=== PATIENT | female | born 1975 | race Caucasian/White ===

== ENCOUNTER 2020-04-30 10:56 | Outpatient (REF) | payer OTHER, SELFPAY ==
--- NOTE | 2020-04-30 11:02 | MM_ITS ---
EXAMINATION: MM SCREENING DIGITAL BREAST TOMOSYNTHESIS, BILATERAL CLINICAL INFORMATION: Screening. Asymptomatic. The lifetime risk of breast cancer based on the Tyrer-Cuzick Model is 12%. COMPARISON: Mammography: 06/07/2018, 10/06/2016, 07/16/2015 TECHNIQUE: Digital breast tomosynthesis is performed in both the craniocaudal and mediolateral oblique views along with computer-aided detection (CAD). Synthesized 2D images are generated from the tomosynthesis. FINDINGS: There are scattered areas of fibroglandular density (ACR BI-RADS breast composition Category b). Breast tissue composition borders on heterogeneously dense. There are no significant masses, abnormal calcifications, or other abnormalities. No significant changes from prior studies. MM/MM tomosynthesis screening BI IMPRESSION: No mammographic evidence of malignancy. ASSESSMENT: BI-RADS 1: Negative RECOMMENDATION: Routine annual mammography screening. This patient's information was entered into a reminder system with a target due date for their next mammogram.
== END 2020-04-30 10:57 | disposition home or self-care (01) ==
LOC: HO.MAMMO 10:56
PROVIDERS: Visit Provider Nurse Practitioner Family
DX: Z12.31 Encounter for screening mammogram for malignant neoplasm of breast (principal)
CPT/HCPCS: 77063; 77067

== ENCOUNTER 2020-08-06 07:36 | Outpatient (REF) | payer OTHER, SELFPAY ==
[2020-08-06 07:53] LABS: COVID-19 Test Negative (Negative); IDNOW Serial# 55D5AD1C
== END 2020-08-06 07:37 | disposition home or self-care (01) ==
LOC: HO.EMPCOV 07:36
PROVIDERS: Visit Provider Internal Medicine
DX: Z20.822 Contact with and (suspected) exposure to COVID-19 (principal)
CPT/HCPCS: 36415; 87635; C9803

== ENCOUNTER 2020-12-01 08:21 | Outpatient (REF) | payer OTHER, SELFPAY ==
--- NOTE | ~2020-12-01 | XR_ITS ---
EXAMINATION: XR KNEE, RIGHT XR KNEE, LEFT XR ANKLE, RIGHT XR ANKLE, LEFT CLINICAL INFORMATION: Effusion. COMPARISON: None. TECHNIQUE: AP and lateral views of the right and left knee. AP, mortise, and lateral views of the right and left ankle. FINDINGS: Right Knee: Tiny medial and patellofemoral compartment marginal osteophytes. No osseous erosion. No fracture or dislocation. No joint effusion. No abnormal soft tissue calcification. Left Knee: No significant joint space narrowing or marginal osteophytes. No osseous erosion. No fracture or dislocation. No joint effusion. No abnormal soft tissue calcification. Right Ankle: No acute fracture or dislocation. The ankle mortise is maintained. No joint space narrowing or marginal osteophytes. No osseous erosion. No abnormal soft tissue calcification. Left Ankle: No acute fracture or dislocation. Ankle mortise is maintained. No joint space narrowing or marginal osteophytes. No osseous erosion. No abnormal soft tissue calcification. XR/XR knee RT 2V IMPRESSION: RIGHT KNEE: Minimal medial and patellofemoral compartment arthrosis. No joint effusion. LEFT KNEE: Unremarkable examination. RIGHT ANKLE: Unremarkable examination. LEFT ANKLE: Unremarkable examination.
--- NOTE | ~2020-12-01 | XR_ITS ---
EXAMINATION: XR KNEE, RIGHT XR KNEE, LEFT XR ANKLE, RIGHT XR ANKLE, LEFT CLINICAL INFORMATION: Effusion. COMPARISON: None. TECHNIQUE: AP and lateral views of the right and left knee. AP, mortise, and lateral views of the right and left ankle. FINDINGS: Right Knee: Tiny medial and patellofemoral compartment marginal osteophytes. No osseous erosion. No fracture or dislocation. No joint effusion. No abnormal soft tissue calcification. Left Knee: No significant joint space narrowing or marginal osteophytes. No osseous erosion. No fracture or dislocation. No joint effusion. No abnormal soft tissue calcification. Right Ankle: No acute fracture or dislocation. The ankle mortise is maintained. No joint space narrowing or marginal osteophytes. No osseous erosion. No abnormal soft tissue calcification. Left Ankle: No acute fracture or dislocation. Ankle mortise is maintained. No joint space narrowing or marginal osteophytes. No osseous erosion. No abnormal soft tissue calcification. XR/XR ankle RT min 3V IMPRESSION: RIGHT KNEE: Minimal medial and patellofemoral compartment arthrosis. No joint effusion. LEFT KNEE: Unremarkable examination. RIGHT ANKLE: Unremarkable examination. LEFT ANKLE: Unremarkable examination.
--- NOTE | ~2020-12-01 | XR_ITS ---
EXAMINATION: XR HAND, RIGHT XR HAND, LEFT CLINICAL INFORMATION: Effusion. COMPARISON: None. TECHNIQUE: AP, oblique, and lateral views of the right and left hand. FINDINGS: Right Hand: No fracture or dislocation. Normal carpal alignment. No significant joint space narrowing or marginal osteophytes. No osseous erosion. No periarticular osteopenia. No abnormal soft tissue calcification. Left Hand: No fracture or dislocation. Normal carpal alignment. No significant joint space narrowing or marginal osteophytes. No osseous erosion. No periarticular osteopenia. No abnormal soft tissue calcification. XR/XR hand LT min 3V IMPRESSION: RIGHT HAND: Unremarkable examination. LEFT HAND: Unremarkable examination.
--- NOTE | ~2020-12-01 | XR_ITS ---
EXAMINATION: XR HAND, RIGHT XR HAND, LEFT CLINICAL INFORMATION: Effusion. COMPARISON: None. TECHNIQUE: AP, oblique, and lateral views of the right and left hand. FINDINGS: Right Hand: No fracture or dislocation. Normal carpal alignment. No significant joint space narrowing or marginal osteophytes. No osseous erosion. No periarticular osteopenia. No abnormal soft tissue calcification. Left Hand: No fracture or dislocation. Normal carpal alignment. No significant joint space narrowing or marginal osteophytes. No osseous erosion. No periarticular osteopenia. No abnormal soft tissue calcification. XR/XR hand RT min 3V IMPRESSION: RIGHT HAND: Unremarkable examination. LEFT HAND: Unremarkable examination.
--- NOTE | ~2020-12-01 | XR_ITS ---
EXAMINATION: XR KNEE, RIGHT XR KNEE, LEFT XR ANKLE, RIGHT XR ANKLE, LEFT CLINICAL INFORMATION: Effusion. COMPARISON: None. TECHNIQUE: AP and lateral views of the right and left knee. AP, mortise, and lateral views of the right and left ankle. FINDINGS: Right Knee: Tiny medial and patellofemoral compartment marginal osteophytes. No osseous erosion. No fracture or dislocation. No joint effusion. No abnormal soft tissue calcification. Left Knee: No significant joint space narrowing or marginal osteophytes. No osseous erosion. No fracture or dislocation. No joint effusion. No abnormal soft tissue calcification. Right Ankle: No acute fracture or dislocation. The ankle mortise is maintained. No joint space narrowing or marginal osteophytes. No osseous erosion. No abnormal soft tissue calcification. Left Ankle: No acute fracture or dislocation. Ankle mortise is maintained. No joint space narrowing or marginal osteophytes. No osseous erosion. No abnormal soft tissue calcification. XR/XR knee LT 2V IMPRESSION: RIGHT KNEE: Minimal medial and patellofemoral compartment arthrosis. No joint effusion. LEFT KNEE: Unremarkable examination. RIGHT ANKLE: Unremarkable examination. LEFT ANKLE: Unremarkable examination.
--- NOTE | ~2020-12-01 | XR_ITS ---
EXAMINATION: XR KNEE, RIGHT XR KNEE, LEFT XR ANKLE, RIGHT XR ANKLE, LEFT CLINICAL INFORMATION: Effusion. COMPARISON: None. TECHNIQUE: AP and lateral views of the right and left knee. AP, mortise, and lateral views of the right and left ankle. FINDINGS: Right Knee: Tiny medial and patellofemoral compartment marginal osteophytes. No osseous erosion. No fracture or dislocation. No joint effusion. No abnormal soft tissue calcification. Left Knee: No significant joint space narrowing or marginal osteophytes. No osseous erosion. No fracture or dislocation. No joint effusion. No abnormal soft tissue calcification. Right Ankle: No acute fracture or dislocation. The ankle mortise is maintained. No joint space narrowing or marginal osteophytes. No osseous erosion. No abnormal soft tissue calcification. Left Ankle: No acute fracture or dislocation. Ankle mortise is maintained. No joint space narrowing or marginal osteophytes. No osseous erosion. No abnormal soft tissue calcification. XR/XR ankle LT min 3V IMPRESSION: RIGHT KNEE: Minimal medial and patellofemoral compartment arthrosis. No joint effusion. LEFT KNEE: Unremarkable examination. RIGHT ANKLE: Unremarkable examination. LEFT ANKLE: Unremarkable examination.
[2020-12-01 11:29] LABS: MANUAL DIFF FLAG NO
[2020-12-01 11:34] LABS: Glucose Urine UA NEG (NEG); Leukocyte Esterase Urine NEG (NEG); Nitrite Urine NEG (NEG); Specific Gravity - Urine <= 1.005 (1.005-1.025); UACC Culture Trigger NO; Urine Blood TRACE (NEG); Urine Ketones NEG (NEG); Urine Protein NEG (NEG-TRACE)
[2020-12-01 11:37] LABS: Appearance Urine HAZY; Color Urine YELLOW
[2020-12-01 11:38] LABS: Basophils Percent Auto 0.2 % (0-2); Eosinophils Absolute Auto 0.1 X10*3/uL (0.0-0.4); Eosinophils Percent Auto 1.3 % (0-4); Hematocrit 37.2 % (37-47); Hemoglobin 12.5 g/dl (12.0-16.0); Imm Gran Abs Auto 0.01 X10*3/uL (0.00-0.03); Imm Gran Pct Auto 0.2 % (0.0-0.4); Lymphocytes Absolute Auto 1.5 X10*3/uL (1.2-4.9); Lymphocytes Percent Auto 32.5 % (20-40); Mean Corpuscular HGB Conc 33.6 g/dl (31.0-35.0); Mean Corpuscular Hemoglobin 30.3 pg (27.0-33.0); Mean Corpuscular Volume 90.3 fL (80-98); Mean Platelet Volume 10.8 fL (9.4-12.3); Monocytes Absolute Auto 0.3 X10*3/uL (0.1-1.2); Monocytes Percent Auto 6.5 % (2-11); Neutrophils Absolute Auto 2.6 X10*3/uL (2.0-8.3); Neutrophils Percent Auto 59.3 % (45-73); Platelet Count 200 X10*3/uL (160-400); Red Blood Count 4.12 X10*6/uL (4.20-5.50); White Blood Count 4.5 X10*3/uL (4.8-10.8)
[2020-12-01 11:44] LABS: RBC Urine 0-2 /HPF (0); Squamous Epithelial Cell Urine TRACE /LPF; WBC Urine 0 /HPF (0-4)
[2020-12-01 12:00] LABS: Alanine Aminotransferase 24 U/L (0-31); Albumin Level 4.1 g/dL (3.5-5.0); Alkaline Phosphatase 50 U/L (39-117); Anion Gap 12 (12-20); Aspartate Amino Transferase 19 U/L (5-31); Bilirubin Total 0.6 mg/dL (0.0-1.0); Blood Urea Nitrogen 11 mg/dL (9-16); C Reactive Protein 0.22 mg/dL (< or = 0.50); Calcium 9.3 mg/dL (8.4-10.2); Carbon Dioxide 25 mmol/L (22-29); Chloride 105 mmol/L (96-108); Cholesterol 215 mg/dL; Estimated Glomerular Filt Rate > 60; Glucose Fasting 93 mg/dL (60-99); HDL Cholesterol 49 mg/dL; Iron 86 mcg/dL (30-160); LDL Cholesterol Calculated 151 mg/dl; Potassium 4.1 mmol/L (3.3-5.1); Sodium 138 mmol/L (135-145); Total Protein 6.3 g/dL (6.5-8.0); Triglycerides 79 mg/dL
[2020-12-01 12:12] LABS: Percent Iron Saturation 27 % (15-50); Rheumatoid Factor < 15.0 IU/mL (<15.0); Total Iron Binding Capacity 321 mcg/dL (228-428); Unsaturated Iron Binding 235 ug/dL
[2020-12-01 12:25] LABS: Ferritin 106 ng/mL (10-250); TSH reflex Free T4 1.71 uIU/mL (0.32-4.0); Vitamin D 25-OH Total 22.9 ng/mL (>30)
[2020-12-01 13:28] LABS: Erythrocyte Sedimentation Rate 10 MM/HR (0-20)
[2020-12-02 08:35] LABS: Lyme Abs Screen <0.90 index
[2020-12-02 11:32] LABS: Immunoglobulin A 100 mg/dL (47-310)
[2020-12-02 11:36] LABS: Antibody to SS-A Antigen <1.0 NEG AI (<1.0 NEG); Antibody to SS-B Antigen <1.0 NEG AI (<1.0 NEG)
[2020-12-02 16:12] LABS: Transglutaminase Ab IgG 1 U/mL; Transglutaminase IgA 1 U/mL
[2020-12-02 22:27] LABS: Anti Nuclear Antibody Screen POSITIVE (NEGATIVE)
[2020-12-03 14:31] LABS: Cyclic Citrullinated Peptide <16 UNITS
[2020-12-05 09:51] LABS: Endomysial IgA Antibody Negative (Negative)
== END 2020-12-01 08:22 | disposition home or self-care (01) ==
LOC: HO.HMGCX 08:21
PROVIDERS: PCP Nurse Practitioner Family; Visit Provider Nurse Practitioner Family
DX: Z00.00 Encounter for general adult medical examination without abnormal findings (principal); M25.40 Effusion, unspecified joint
CPT/HCPCS: 36415; 73130; 73560; 73610; 80053; 80061; 81001; 82306; 82728; 82784; 83516; 83540; 84443; 85025; 85652; 86038; 86039; 86140; 86200; 86235; 86255; 86256; 86431; 86617; 86618

== ENCOUNTER 2020-12-02 07:53 | Outpatient (REF) | payer OTHER, SELFPAY ==
[2020-12-04 14:16] LABS: PTT (LAC) Screen 28 sec (< OR = 40)
== END 2020-12-02 07:54 | disposition home or self-care (01) ==
LOC: HO.LAB 07:53
PROVIDERS: PCP Nurse Practitioner Family; Visit Provider Nurse Practitioner Family
DX: M25.40 Effusion, unspecified joint (principal)
CPT/HCPCS: 36415; 85597; 85613; 85730

== ENCOUNTER 2022-05-25 09:58 | Outpatient (REF) | payer OTHER, SELFPAY ==
--- NOTE | ~2022-05-25 | MM_ITS ---
EXAMINATION: MM SCREENING DIGITAL BREAST TOMOSYNTHESIS, BILATERAL CLINICAL INFORMATION: Screening. Asymptomatic. The lifetime risk of breast cancer based on the Tyrer-Cuzick Model is 11.6%. COMPARISON: Mammography: April 30, 2020 and studies dating back to July 16, 2015 TECHNIQUE: Digital breast tomosynthesis is performed in both the craniocaudal and mediolateral oblique views along with computer-aided detection (CAD). Synthesized 2D images are generated from the tomosynthesis. FINDINGS: The breasts are heterogeneously dense, which may obscure small masses (ACR BI-RADS breast composition Category c). There are no significant masses, abnormal calcifications, or other abnormalities. MM/MM tomosynthesis screening BI IMPRESSION: No significant changes from prior exam. ASSESSMENT: BI-RADS 1: Negative RECOMMENDATION: Routine annual mammography screening. This patient's information was entered into a reminder system with a target due date for their next mammogram.
== END 2022-05-25 09:59 | disposition home or self-care (01) ==
LOC: HO.MAMMO 09:58
PROVIDERS: PCP Nurse Practitioner Family; Visit Provider Nurse Practitioner Family
DX: Z12.31 Encounter for screening mammogram for malignant neoplasm of breast (principal)
CPT/HCPCS: 77063; 77067

== ENCOUNTER → 2022-08-10 14:27 | Outpatient (BNVA) | payer OTHER, SELFPAY | PROVIDERS: PCP Nurse Practitioner Family; Referring Provider Nurse Practitioner Family; Visit Provider Surgery | DX: Z13.89 Encounter for screening for other disorder (principal) ==

== ENCOUNTER 2022-08-23 09:35 | Outpatient (REF) | payer OTHER, SELFPAY ==
[2022-08-23 11:39] LABS: Hemoglobin 13.9 g/dl (12.0-16.0); Mean Corpuscular HGB Conc 33.9 g/dl (31.0-35.0); Mean Corpuscular Hemoglobin 30.8 pg (27.0-33.0); Mean Corpuscular Volume 90.7 fL (80.0-98.0); Mean Platelet Volume 10.5 fL (9.4-12.3); Platelet Count 206 X10*3/uL (160-400); Red Blood Count 4.52 X10*6/uL (4.20-5.50); Red Cell Distribution Width 11.9 % (11.0-16.0); White Blood Count 3.6 X10*3/uL (4.8-10.8)
[2022-08-23 13:02] LABS: Alanine Aminotransferase 16 U/L (0-31); Albumin Level 4.4 g/dL (3.5-5.0); Alkaline Phosphatase 59 U/L (39-117); Anion Gap 10 (12-20); Aspartate Amino Transferase 15 U/L (5-31); Bilirubin Direct 0.2 mg/dL (0.0-0.5); Bilirubin Total 0.6 mg/dL (0.0-1.0); Blood Urea Nitrogen 9 mg/dL (9-16); Calcium 9.7 mg/dL (8.4-10.2); Carbon Dioxide 28 mmol/L (22-29); Chloride 108 mmol/L (96-108); Estimated Glomerular Filt Rate > 60; Glucose Random 93 mg/dL (60-115); Potassium 4.7 mmol/L (3.3-5.1); Sodium 141 mmol/L (135-145); Total Protein 6.7 g/dL (6.5-8.0)
[2022-08-23 13:04] LABS: TSH reflex Free T4 1.13 uIU/mL (0.32-4.0); Vitamin D 25-OH Total 23.2 ng/mL (>30)
== END 2022-08-23 09:36 | disposition home or self-care (01) ==
LOC: HO.HMGCLDS 09:35
PROVIDERS: Surgery; PCP Nurse Practitioner Family; Visit Provider Nurse Practitioner Family
DX: R10.11 Right upper quadrant pain (principal); R53.83 Other fatigue; E55.9 Vitamin D deficiency, unspecified
CPT/HCPCS: 36415; 80048; 80076; 82306; 84443; 85027

== ENCOUNTER 2022-08-31 07:53 | Outpatient (REF) | payer OTHER, SELFPAY ==
--- NOTE | ~2022-08-31 | US_ITS ---
EXAMINATION: US ABDOMEN LIMITED CLINICAL INFORMATION: Right upper quadrant pain. COMPARISON: Ultrasound abdomen complete 05/25/2017. TECHNIQUE: Real-time imaging of the right upper quadrant abdominal viscera. FINDINGS: PANCREAS: Normal. LIVER: Normal. The liver is normal in size. The liver contour is normal. Parenchymal echogenicity is normal. No focal hepatic lesion. There is no intrahepatic biliary duct dilatation seen. GALLBLADDER: Normal. The gallbladder is physiologically distended without evidence of stones, sludge, polyps, wall thickening or pericholecystic fluid. COMMON BILE DUCT: Normal in caliber measuring 0.3 cm in diameter. RIGHT KIDNEY: Normal. No hydronephrosis. No renal calculi or focal parenchymal lesions. The kidney measures 11.0 cm in maximum dimension. FREE FLUID: None. US/US abdomen limited IMPRESSION: Unremarkable examination.
== END 2022-08-31 07:54 | disposition home or self-care (01) ==
LOC: HO.US 07:53
PROVIDERS: PCP Nurse Practitioner Family; Visit Provider Surgery
DX: R10.11 Right upper quadrant pain (principal)
CPT/HCPCS: 76705

== ENCOUNTER 2022-09-03 13:44 | Outpatient (REF) | payer OTHER, SELFPAY ==
[2022-09-03 13:51] LABS: Appearance Urine Clear; Color Urine Yellow; Glucose Urine UA Negative (Negative); Leukocyte Esterase Urine Negative (Negative); Nitrite Urine Negative (Negative); Urine Blood Negative (Negative); Urine Ketones Negative (Negative); Urine Protein Negative (Neg-Trace)
== END 2022-09-03 13:45 | disposition home or self-care (01) ==
LOC: HO.LNP 13:44
PROVIDERS: Visit Provider Nurse Practitioner Family
DX: R53.83 Other fatigue (principal)
CPT/HCPCS: 81003

== ENCOUNTER 2022-12-29 10:36 | Outpatient (AMB) | payer OTHER, SELFPAY ==
--- NOTE | 2022-12-29 10:27 | MHC.PC.OV ---
Vital Signs 12/29/22 10:52 Height 5 ft 6 in Weight 194 lb BMI 31.3 BP 130/80 Blood Pressure Location Lt brachial Position Sitting Pulse 70 Pulse Source Pulse Oximeter Pulse Oximetry (%) 98 Oxygen Delivery Method Room Air Intake Visit Reasons: Physical exam Allergies Sulfa (Sulfonamide Antibiotics) [SULFA (SULFONAMIDE ANTIBIOTICS)] Allergy (Unknown, Verified 12/29/22 10:53) HIVES Medication List - Last Reconciled 12/29/22 by MIGUEL Patel cephalexin 500 mg PO BID 10 days cholecalciferol (vitamin D3) 100 mcg PO DAILY levothyroxine 25 mcg PO DAILY phentermine 15 mg PO DAILY 30 days triamcinolone acetonide 0.1% 1 appl topical BID 10 days Tobacco use date assessed: 12/29/22 Dental Screening Dental Screen Date: 12/29/22 Did you have a dental visit in the last 12 months?: No Did you have a dental problem in the last 6 months where you did not have access to dental care?: No Was dental information given to patient?: Patient has dentist HPI Physical exam HPI Details Pt is here for a PE. Will order labs. Mammo is up to date. 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 Refuses colonoscopy at this time, will order cologuard. ? enlarged thyroid. Will order US. upcoming rheum appt for intermittent painful and swollen joints [facility] Medical History (Updated 12/29/22 @ 11:39 by MIGUEL Patel) Hypothyroidism Right upper quadrant abdominal pain of unknown etiology Chronic leukopenia Family History Father Vascular disease Hypertension Thyroid disease Mother Thyroid disease Paternal Grandmother Heart disease Diabetes CVD (cardiovascular disease) Maternal Grandfather Osteoarthritis Maternal Aunt Lupus Social History Housing: House Patient Tobacco Use Status: Never used Tobacco Current occupational status: employed Current occupation: [employer] [place] Questionnaire PHQ-9 Over the last 2 weeks, how often have you been bothered by any of the following problems? 1. Little interest or pleasure in doing things: not at all 2. Feeling down, depressed, or hopeless: not at all 3. Trouble falling or staying asleep, or sleeping too much: not at all 4. Feeling tired or having little energy: not at all 5. Poor appetite or overeating: not at all 6. Feeling bad about yourself - or that you are a failure or have let yourself or your family down: not at all 7. Trouble concentrating on things, such as reading the newspaper or watching television: not at all 8. Moving or speaking so slowly that other people could have noticed. Or the opposite - being so fidgety or restless that you have been moving around a lot more than usual: not at all 9. Thoughts that you would be better off or of hurting yourself in some way: not at all Total score: 0 Depression Screening Interpretation: Negative 28828 - PHQ-9 Billing: Yes Source: Developed by Drs. Gustavo Hawk, Evangelina Mclaughlin, David Jose and colleagues, with an educational иван from [employer]. Thrive Questionnaire Date Thrive assessed: 12/29/22 I am a: Patient What is your living situation today?: I have a steady place to live Within the past 12 months, did the food you bought not last and you didn't have the money to get more?: Never true Within the past 12 months, did you worry whether your food would run out before you got money to buy more?: Never true Do you have trouble paying for medicines?: No Do you have trouble getting transportation to medical appointments?: No Do you have trouble paying your heating and electricity bill?: No Do you have trouble taking care of your child, family member or friend?: No Do you have trouble with day-to-day activities such as bathing, preparing meals, shopping, managing finances, etc.?: No Are you currently unemployed and looking for a job?: No Are you interested in more education?: No Please select the resources that you would like help with: None AUDIT C Alcohol Use Questionnaire (AUDIT-C) 1. How often do you have a drink containing alcohol?: Monthly or less 2. How many drinks containing alcohol do you have on a typical day when you are drinking?: 1 or 2 3. How often do you have six or more drinks on one occasion?: Never Total Score: 1 Score Reviewed/Action Taken: Yes DONNA-7 AMB Questionnaire DONNA-7 Date DONNA - 7 assessed: 12/29/22 Feeling nervous, anxious, or on edge: 0 = Not at all Not being able to stop or control worryin = Not at all Worrying too much about different things: 0 = Not at all Trouble relaxin = Not at all Being so restless that it is hard to sit still: 0 = Not at all Becoming easily annoyed or irritable: 0 = Not at all Feeling afraid as if something awful might happen: 0 = Not at all Total DONNA-7 score (0-4 normal; 5-9 mild; 10-14 moderate; 15-21 severe): 0 Source: Developed by Drs. Gustavo Hawk, Evangelina Mclaughlin, David Jose and colleagues, with an educational иван from [employer]. DONNA-7 Assessment Billing DONNA-7 Assessment Tool: DONNA-7 Assessment 24152 Review of Systems Const Denies chills and Denies fever(s) Eyes Denies blurry vision ENT Denies vertigo, Denies dizziness and Denies sore throat Card Denies chest pain at rest, Denies chest pain with activity, Denies diaphoresis, Denies dyspnea and Denies dyspnea on exertion Resp Denies cough, Denies dyspnea, Denies dyspnea on exertion and Denies wheezing GI Denies abdominal pain, Denies melena, Denies hematochezia, Denies constipation, Denies diarrhea and Denies loose stools Denies hematuria Musc Denies numbness and Denies tingling Skin/Breast Denies lesions Neuro Denies vertigo, Denies dizziness, Denies numbness and Denies tingling Psych Denies anxiety, Denies depression, Denies homicidal ideation, Denies suicidal ideation and Denies other (substance abuse) Aller/Immun Denies wheezing Physical exam (Primary Care) Vital Signs: Last Vital Signs Pulse 70 12/29/22 10:52 BP 130/80 12/29/22 10:52 Pulse Ox 98 12/29/22 10:52 Oxygen Delivery Method Room Air 12/29/22 10:52 BMI result Body Mass Index 31.3 Tobacco/Smoking Status: Tobacco use Status Tobacco use date assessed 12/29/22 12/29/22 10:57 Patient Tobacco Use Status Never used Tobacco 12/29/22 10:29 PHQ-9: PHQ-9 Score PHQ-9: Total score 0 12/29/22 11:28 Depression Screening Interpretation: Negative Thrive Assessment: Date of Thrive Assessment Date Thrive assessed 12/29/22 12/29/22 10:32 Const General: cooperative Nutritional Appearance: well nourished Orientation/consciousness: patient oriented x3 HENMT Head: Yes normal to inspection, Yes normocephalic and Yes atraumatic Ears: TM's normal bilaterally Eyes General: appearance normal, both eyes and all related structures Alignment and Position: alignment normal and position normal Neck Other: ? enlarged thyroid Neck: Yes normal visual inspection and Yes no lymphadenopathy Resp Effort & Inspection: normal respiratory effort Auscultation: clear to auscultation bilaterally Cardio Rate: regular rate Rhythm: regular rhythm Heart sounds: S1 normal heart sound present, S2 normal heart sound present and no murmurs GI Palpation (GI): Soft to palpation and nontender Auscultation: normal bowel sounds Skin Rashes: no rashes Neuro General: patient oriented x3, moves all extremities, no focal motor deficits and deep tendon reflexes 2+ bilaterally Romberg Test: Negative Psych Appearance: grossly normal Mental Status: mental status grossly normal Speech and movement: Normal speech and movement present Affect: normal affect Attitude: cooperative Thought process: Normal thought process present Thought content: Normal thought content present Insight: Good insight present (Psych) Judgement: Good judgement present (Psych) Assessment and Plan Assessment & Plan (1) Physical exam: Code(s): Z00.00 - Encounter for general adult medical examination without abnormal findings Plan: Labs ordered (2) Vitamin D deficiency: Code(s): E55.9 - Vitamin D deficiency, unspecified (3) Enlarged thyroid: Code(s): E04.9 - Nontoxic goiter, unspecified Plan The patient agreed to the use of a emergency medicine medical director for this encounter. Scribed for MIGUEL Brown by Geneva Barney emergency medicine medical director, on 12/29/2022 at 11:20 EST. Orders: Orders UA CC w/rflx Micro + Cult Today Z00.00 - Encounter for general adult medical examination without abnormal findings Lipid Panel Today Z00.00 - Encounter for general adult medical examination without abnormal findings Tick-borne Disease Molecular Today M25.40 - Effusion, unspecified joint Complete Blood Count Auto Diff Today Z00.00 - Encounter for general adult medical examination without abnormal findings Comprehensive [place]. Panel Fast Today Z00.00 - Encounter for general adult medical examination without abnormal findings TSH reflex Free T4 Today Z00.00 - Encounter for general adult medical examination without abnormal findings Vitamin D 25-OH Total Today E55.9 - Vitamin D deficiency, unspecified US thyroid Today E04.9 - Nontoxic goiter, unspecified Referrals Cologuard Test Z12.11 - Encounter for screening for malignant neoplasm of colon, Z12.12 - Encounter for screening for malignant neoplasm of rectum Coding Level of Care Code Est Pt Prev Care 40-64y(27539) Diagnoses Physical exam Z00.00 Vitamin D deficiency E55.9 Enlarged thyroid E04.9 Additional Codes DONNA-7 Assessment Billing - DONNA-7 Assessment Tool: DONNA-7 Assessment [id number] ([id number])
[2022-12-29 10:52] VITALS: BP 130/80; PULSE 70; O2SAT 98; BMI 31.3
== END 2022-12-29 12:42 | disposition home or self-care (01) ==
PROVIDERS: Visit Provider Nurse Practitioner Family
DX: Z00.00 Encounter for general adult medical examination without abnormal findings (principal); E55.9 Vitamin D deficiency, unspecified; E04.9 Nontoxic goiter, unspecified
CPT/HCPCS: 99396

== ENCOUNTER 2023-01-13 07:15 | Outpatient (REF) | payer OTHER, SELFPAY ==
[2023-01-13 11:09] LABS: MANUAL DIFF FLAG NO
[2023-01-13 11:21] LABS: Basophils Percent Auto 0.3 % (0-2); Eosinophils Absolute Auto 0.1 X10*3/uL (0.0-0.4); Eosinophils Percent Auto 1.8 % (0-4); Hematocrit 41.2 % (37.0-47.0); Hemoglobin 13.9 g/dl (12.0-16.0); Imm Gran Abs Auto 0.01 X10*3/uL (0.00-0.03); Imm Gran Pct Auto 0.3 % (0.0-0.4); Lymphocytes Absolute Auto 1.8 X10*3/uL (1.2-4.9); Lymphocytes Percent Auto 46.2 % (20-40); Mean Corpuscular HGB Conc 33.7 g/dl (31.0-35.0); Mean Platelet Volume 10.9 fL (9.4-12.3); Monocytes Absolute Auto 0.2 X10*3/uL (0.1-1.2); Neutrophils Absolute Auto 1.7 x10*3/uL (2.0-8.3); Neutrophils Percent Auto 45.4 % (45-73); Platelet Count 209 X10*3/uL (160-400); Red Blood Count 4.48 X10*6/uL (4.20-5.50); Red Cell Distribution Width 11.5 % (11.0-16.0); White Blood Count 3.8 X10*3/uL (4.8-10.8)
[2023-01-13 11:41] LABS: Appearance Urine Clear; Color Urine Yellow; Glucose Urine UA Negative (Negative); Leukocyte Esterase Urine Trace (Negative); Nitrite Urine Negative (Negative); PH 7.5 (5.0-9.0); UMIC TRIGGER UACC YES; Urine Blood Negative (Negative); Urine Ketones Negative (Negative); Urine Protein Negative (Neg-Trace)
[2023-01-13 11:51] LABS: Bacteria Urine None Seen (None Seen); Hyaline Casts Urine 0-2 /LPF (0-2); RBC Urine 0-2 /HPF (0-2); Squamous Epithelial Cell Urine 0-2 /HPF (0-2); WBC Urine 0-5 /HPF (0-5)
[2023-01-13 12:03] LABS: Alanine Aminotransferase 23 U/L (0-31); Albumin Level 4.5 g/dL (3.5-5.0); Alkaline Phosphatase 60 U/L (39-117); Anion Gap 15 (12-20); Aspartate Amino Transferase 21 U/L (5-31); Bilirubin Total 0.5 mg/dL (0.0-1.0); Blood Urea Nitrogen 12 mg/dL (9-16); Carbon Dioxide 24 mmol/L (22-29); Chloride 105 mmol/L (96-108); Cholesterol 251 mg/dL (<200); Estimated Glomerular Filt Rate > 60; Glucose Fasting 93 mg/dL (60-99); HDL Cholesterol 56 mg/dL (>40); LDL Cholesterol Calculated 178 mg/dL (<100); Potassium 4.1 mmol/L (3.3-5.1); Sodium 140 mmol/L (135-145); Triglycerides 85 mg/dL (<150)
[2023-01-13 12:08] LABS: TSH reflex Free T4 2.16 uIU/mL (0.32-4.0)
[2023-01-16 21:43] LABS: A. Phagocytphilium DNA,RT-PCR NOT DETECTED (NOT DETECTED); Babesia Microti DNA, RT-PCR NOT DETECTED (NOT DETECTED); Borrelia Miyamotoi,DNA RT-PCR NOT DETECTED (NOT DETECTED); E.Chaffeensis DNA RT-PCR NOT DETECTED (NOT DETECTED); Lyme(Borrelia ssp)DNA RT-PCR NOT DETECTED (NOT DETECTED)
== END 2023-01-13 07:16 | disposition home or self-care (01) ==
LOC: HO.HMGCLDS 07:15
PROVIDERS: PCP Nurse Practitioner Family; Visit Provider Nurse Practitioner Family
DX: Z00.00 Encounter for general adult medical examination without abnormal findings (principal); E55.9 Vitamin D deficiency, unspecified; M25.40 Effusion, unspecified joint
CPT/HCPCS: 36415; 80053; 80061; 81001; 82306; 84443; 85025; 87468; 87469; 87478; 87484; 87798

== ENCOUNTER 2023-01-17 15:51 | Outpatient (REF) | payer OTHER, SELFPAY ==
--- NOTE | ~2023-01-17 | US_ITS ---
EXAMINATION: US THYROID CLINICAL INFORMATION: Nontoxic goiter, unspecified. COMPARISON: None available. TECHNIQUE: Linear transducer tanner-scale and color Doppler examination with attention to the region of the thyroid. FINDINGS: SIZE: Measurements of the thyroid lobes and nodules are given in sagittal, anteroposterior and transverse dimensions respectively. Right Thyroid Lobe: 5.3 x 1.6 x 1.7 cm, volume 7.6 mL. Parenchyma: The gland echotexture is homogeneous. Thyroid vascularity is normal. Left Thyroid Lobe: 4.6 x 1.3 x 1.8 cm, volume 5.6 mL. Parenchyma: The gland echotexture is homogeneous. Thyroid vascularity is normal. Isthmus: 0.2 cm in maximum AP dimension. Estimated total number of nodules greater than or equal to 1 cm: 0. [employer] nodules are described as follows: 1. Location: Inferior to right thyroid lobe. Size: 0.5 x 0.4 x 0.5 cm, volume 0.05 mL. Nodule characteristics: Composition: Solid (2). Echogenicity: Very hypoechoic (3). Shape: Not taller than wide (0). Margins: Smooth (0). Echogenic Foci: None (0). ACR TI-RADS total points: 5 ACR TI-RADS category: 5 NODES: No lymphadenopathy is seen in the tissue surrounding the thyroid gland. US/US thyroid IMPRESSION: 0.5 cm nodule at the inferior aspect of the right thyroid lobe. Per below, continued sonographic follow-up recommended. ACR TI-RADS RECOMMENDATION REFERENCE: Ultrasound-guided fine-needle aspiration, followup ultrasound, no further follow up. * TR1 (0 point) and TR2 (2 points): No FNA or follow up. * TR3 (3 points): FNA if more than or equal to 2.5 cm in maximum dimension, followup ultrasound in 1, 3 and 5 years if 1.5 to 2.4 cm in maximum dimension. * TR4 (4-6 points): FNA if more than or equal to 1.5 cm in maximum dimension, followup ultrasound in 1, 2, 3 and 5 years if 1 to 1.4 cm in maximum dimension. * TR5 (more than or equal to 7 points): FNA if more than or equal to 1 cm in maximum dimension, followup ultrasound every year for 5 years if 0.5 to 0.9 cm in maximum dimension. Continued sonographic follow-up recommended. * TR3, TR4 or TR5 nodules that are below the size threshold for followup receive no follow up.
== END 2023-01-17 15:52 | disposition home or self-care (01) ==
LOC: HO.US 15:51
PROVIDERS: PCP Nurse Practitioner Family; Visit Provider Nurse Practitioner Family
DX: E04.9 Nontoxic goiter, unspecified (principal)
CPT/HCPCS: 76536

== ENCOUNTER 2023-03-10 12:10 | Outpatient (AMB) | payer OTHER, SELFPAY ==
--- NOTE | 2023-03-10 12:13 | MHC.OFFWIV ---
Intake Vital Signs 03/10/23 12:15 Height 5 ft 6 in Weight 196 lb BMI 31.6 BP 122/74 Blood Pressure Location Lt brachial Position Sitting Pulse 71 Pulse Source Pulse Oximeter Temp 98.0 F Temp Source Temporal Artery Scan Pulse Oximetry (%) 97 Oxygen Delivery Method Room Air Intake Visit Reasons: EP Cough, Congestion, Headache 1 week (masked) Intake Note: pt is here for c/o cough, congestion with congestion, headache 1x week Patient Tobacco Use Status: Never used Tobacco Allergies Sulfa (Sulfonamide Antibiotics) [SULFA (SULFONAMIDE ANTIBIOTICS)] Allergy (Unknown, Verified 03/10/23 12:15) HIVES Medication List - Last Reconciled 03/10/23 by Alberta Montes PA-C amoxicillin-pot clavulanate 875-125 mg 1 tab PO BID 10 days cetirizine (Zyrtec) 10 mg PO DAILY PRN cholecalciferol (vitamin D3) 100 mcg PO DAILY levothyroxine 25 mcg PO DAILY Do you need a note to return to daycare/school/sports/work: Yes HPI HPI Comments History of Present Illness Details Patient is a 47yo F who presents to the office with cough/congestion x [address]; dry throat Progressed into head + pressure/blocked sinuses + mucus that she is able to express that is thick She said now she has wet cough that has progressed Minimal SOB with exertion, without chest pain Denies fevers She has tried daily Zyrtec (states hx chronic sinus infections) and Mucinex She said blocked ears and popping PFSH Medical History (Updated 03/10/23 @ 12:30 by Alberta Montes PA-C) Hypothyroidism Right upper quadrant abdominal pain of unknown etiology Chronic leukopenia Family History Father Vascular disease Hypertension Thyroid disease Mother Thyroid disease Paternal Grandmother Heart disease Diabetes CVD (cardiovascular disease) Maternal Grandfather Osteoarthritis Maternal Aunt Lupus Housing: House Patient Tobacco Use Status: Never used Tobacco Current occupational status: employed Current occupation: [employer] [place] Review of Systems Const Reports body aches, Denies chills, Denies fever(s), Reports headache(s) and Reports malaise Eyes Denies diplopia, Denies eye discharge and Denies itchy eyes ENT Denies ear discharge, Reports headache(s), Reports sinus pain, Reports sinus pressure and Denies sore throat Card Denies chest pain and Denies dyspnea Resp Reports chest congestion, Reports cough and Denies dyspnea Neuro Reports headache(s) Aller/Immun Denies itchy eyes Physical Exam Vital Signs: Last Vital Signs Temp 98.0 F 03/10/23 12:15 Pulse 71 03/10/23 12:15 BP 118/74 03/10/23 12:15 Pulse Ox 97 03/10/23 12:15 Oxygen Delivery Method Room Air 03/10/23 12:15 BMI result Body Mass Index 31.6 General: Non-toxic, NAD. Speaking full sentences. Skin: Warm dry throughout Eye: EOMI HENT: Airway patent. Uvula midline. No pharyngeal erythema or edema. 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 Bilateral canals clear. TM + fluid without erythema o bulging/perforation, No hemotympanum noted. + tenderness to palpation of ethmoid and maxillary sinuses. No tenderness to frontal. Respiratory: CTA bilaterally. No wheezes, rales or rhonchi. + dry cough on exam Cardiac: RRR. No murmur MSK: Full ROM extremities. Neurology: A/O. No aphasia or facial droop. Gait without abnormality Psych: Good mood and affect Assessment & Plan Assessment & Plan (1) Sinusitis: Code(s): J32.9 - Chronic sinusitis, unspecified Qualifiers: Sinusitis location: maxillary Chronicity: acute Recurrence: not specified as recurrent Qualified Code(s): J01.00 - Acute maxillary sinusitis, unspecified Plan Seen nd evalated. Non-toxic and lung CTA Symptoms x 1 week and unresolved with OTC decongestant and antihistamine. Antibiotic with food Continue decongestants prn follow up with PCP ED if CP, SOB, uncontrolled fevers All questions answered at time of discharge Medications: New amoxicillin-pot clavulanate 875-125 mg 1 tab PO BID 10 days 20 tabs 0RF J32.9 - Chronic sinusitis, unspecified Coding Level of Care Code Est Pt Level 3 (00376) Diagnoses Acute maxillary sinusitis, recurrence not specified J01.00 Sinusitis location: maxillary Chronicity: acute Recurrence: not specified as recurrent
[2023-03-10 12:15] VITALS: BP 122/74; PULSE 71; TEMP 36.7; O2SAT 97; BMI 31.6
== END 2023-03-10 12:44 | disposition home or self-care (01) ==
PROVIDERS: PCP Nurse Practitioner Family; Visit Provider Physician Assistant
DX: J01.00 Acute maxillary sinusitis, unspecified (principal)
CPT/HCPCS: 99213

== ENCOUNTER 2023-07-21 13:35 | Outpatient (AMB) | payer OTHER, SELFPAY ==
--- NOTE | 2023-07-21 13:35 | MHC.OFFVIS ---
Intake Vital Signs 07/21/23 13:37 Height 5 ft 6 in Weight 212 lb 1.355 oz BMI 34.2 BP 110/76 Blood Pressure Location Rt brachial Position Sitting Pulse 97 Pulse Source Pulse Oximeter Pulse Oximetry (%) 68 L Oxygen Delivery Method Room Air Intake Visit Reasons: joint pain Intake Note: New patient, internally referred, presents to office today for joint pain. Joints affected: diffused myalgias, mainly right knee, feet, left shoulder, elsa hips Pain began approx: 1.5 years ago Has tried: Meloxicam, Ibuprofen, Tylenol Saw ATC in 2014 for her feet. Meloxicam was prescribed. 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 Lawrence, 47-year-old female, here for evaluation of multiple joint pain on referral from her primary care provider. The patient describes pain all over her joints, more prominent in her right knee, left shoulder, both hips and feet. She describes this has been ongoing for about a year and a half. [facility] and was provided with meloxicam. She does say that meloxicam helped the joint pain but on the advice of her PCP she had stopped it. She describes the pain to the right knee is more noticeable when she goes up and down the stairs and at times is significantly swollen. She has a feeling that her body is total pain. She also feels that there is decreased strength in her upper extremities. The bilateral hip pain makes it challenging to sleep at night and she has to consistently turn from [id number], but ends up sleeping on her back. By way of medical history she has hypothyroid subclinical, on 25 mcg of Synthroid. She has not has uveitis, rashes, sun sensitivity, Raynaud's, gout, Achilles tendonitis. By way of family history she has an aunt that has lupus and rheumatoid arthritis [facility] Medical History (Updated 07/21/23 @ 15:52 by MIGUEL Pendleton) Osteoarthritis of knees, bilateral Greater trochanteric bursitis of both hips Swelling of right knee joint Pain in joint involving multiple sites Hypothyroidism Right upper quadrant abdominal pain of unknown etiology Chronic leukopenia Family History Father Vascular disease Hypertension Thyroid disease Mother Thyroid disease Paternal Grandmother Heart disease Diabetes CVD (cardiovascular disease) Maternal Grandfather Osteoarthritis Maternal Aunt Lupus Social History (Updated 07/21/23 @ 13:43 by CORRINE Roblero) Housing: House Unable to assess alcohol history related to: Unable to respond Alcohol intake: current Alcohol intake frequency: holidays/special occasions only Patient Tobacco Use Status: Never used Tobacco Current occupational status: employed Current occupation: [employer] [place] Female Reproductive History Menstrual Total pregnancies: 2 Review of Systems Const All systems reviewed & are unremarkable except as noted in HPI and below Physical Exam Vital Signs: Last Vital Signs Pulse 97 07/21/23 13:37 BP 110/76 07/21/23 13:37 Pulse Ox 68 L 07/21/23 13:37 Oxygen Delivery Method Room Air 07/21/23 13:37 BMI result Body Mass Index 34.2 Vital signs reviewed. Constitutional: Non-toxic appearing. No acute distress. Well-developed and well-nourished. HEENT: Normocephalic and atraumatic. External auditory canals without erythema or edema bilaterally. Moist mucous membranes. No pharyngeal erythema or exudates. Skin: Warm and dry. No rashes or lesions noted. Neck: Full and painless range of motion. No cervical lymphadenopathy. Cardio: Regular rate and rhythm. No murmurs, gallops, or rubs. No lower extremity edema. No JVD. Pulmonary: No respiratory distress. No accessory muscle usage. Gastrointestinal: Soft, nontender, and nondistended Genitourinary: No CVA tenderness. Musculoskeletal: Normal range of motion in joints throughout the body. No deformity or other signs of injury. Trace swelling to right knee tenderness along parapatellar joint line Neuro: Alert and oriented x4. Cranial nerves 2-12 grossly intact. No focal deficits appreciated. Results Reviewed Results Reviewed: Imaging 2020 TECHNIQUE: AP and lateral views of the right and left knee. AP, mortise, and lateral views of the right and left ankle. FINDINGS: Right Knee: Tiny medial and patellofemoral compartment marginal osteophytes. No osseous erosion. No fracture or dislocation. No joint effusion. No abnormal soft tissue calcification. Left Knee: No significant joint space narrowing or marginal osteophytes. No osseous erosion. No fracture or dislocation. No joint effusion. No abnormal soft tissue calcification. Right Ankle: No acute fracture or dislocation. The ankle mortise is maintained. No joint space narrowing or marginal osteophytes. No osseous erosion. No abnormal soft tissue calcification. Left Ankle: No acute fracture or dislocation. Ankle mortise is maintained. No joint space narrowing or marginal osteophytes. No osseous erosion. No abnormal soft tissue calcification. XR/XR knee RT 2V IMPRESSION: RIGHT KNEE: Minimal medial and patellofemoral compartment arthrosis. No joint effusion. LEFT KNEE: Unremarkable examination. RIGHT ANKLE: Unremarkable examination. LEFT ANKLE: Unremarkable examination. TECHNIQUE: AP, oblique, and lateral views of the right and left hand. FINDINGS: Right Hand: No fracture or dislocation. Normal carpal alignment. No significant joint space narrowing or marginal osteophytes. No osseous erosion. No periarticular osteopenia. No abnormal soft tissue calcification. Left Hand: No fracture or dislocation. Normal carpal alignment. No significant joint space narrowing or marginal osteophytes. No osseous erosion. No periarticular osteopenia. No abnormal soft tissue calcification. XR/XR hand RT min 3V IMPRESSION: RIGHT HAND: Unremarkable examination. LEFT HAND: Unremarkable examination. Assessment & Plan Assessment & Plan (1) Greater trochanteric bursitis of both hips: Code(s): M70.61 - Trochanteric bursitis, right hip; M70.62 - Trochanteric bursitis, left hip (2) Swelling of right knee joint: Code(s): M25.461 - Effusion, right knee (3) Pain in joint involving multiple sites: Code(s): M25.50 - Pain in unspecified joint (4) Osteoarthritis of knees, bilateral: Code(s): M17.0 - Bilateral primary osteoarthritis of knee Qualifiers: Osteoarthritis type: primary Qualified Code(s): M17.0 - Bilateral primary osteoarthritis of knee Plan #Multiple joint pain/OA multiple joint: Ms. Lawrence has had some prior rheumatologic workup: Positive ASH at 1:80, negative CCP and negative rheumatoid factor, Sjogren's antibody negative. At this time she has ESR/CRP within normal range. At this time her clinical picture does have some elements of inflammation, more particularly in the right knee where there is swelling. However this could also be attributed to the osteoarthritis especially since felt when climbing stairs. She does recount that sometimes her hands are swelling that I suspect this is more fluid shifting than inflammatory swelling. I think the patient would benefit from PT to strengthen her quad and hip for both her knees and her bursitis respectively. I discussed with her that it is likely or onset of OA in her knee since it is experienced when climbing stairs. I will do a rheumatologic panel to evaluate further. She has had prior x-rays of her knees and ankles that were unremarkable. I discussed a prednisone trial with the patient but she wants elizabeth hold that at this time. She did say that whenever she uses prednisone for respiratory infection her joint pain improved tremendously. So we will keep this in mind. For now we will continue with the meloxicam 15 mg daily as this also helps her joint pain. I discussed with patient that we will monitor kidney function while on long-term NSAID use. She she can also take it every other day. It is also advisable that she takes it an hour before PT as that can help the after PT discomfort. We will follow-up in 3 months. Patient will call if she wants to do the prednisone trial. If there are any concerns for her labs I will call the patient prior to the appointment. Follow-up in 3 months I spent 45 minutes reviewing history, evaluating patient, discussing osteoarthritis disease process and treatment options and documenting Orders: Orders ASH Reflex Titer and Pattern Today M25.461 - Effusion, right knee, M25.50 - Pain in unspecified joint Anti DNA DS Antibody Today M25.461 - Effusion, right knee, M25.50 - Pain in unspecified joint Comprehensive Met. Panel Today M25.461 - Effusion, right knee, M25.50 - Pain in unspecified joint Erythrocyte Sedimentation Rate Today M25.461 - Effusion, right knee, M25.50 - Pain in unspecified joint Immunoglobulins,IgG IgA IgM Today M25.461 - Effusion, right knee, M25.50 - Pain in unspecified joint Creatine Kinase Total Today M25.461 - Effusion, right knee, M25.50 - Pain in unspecified joint Protein Electrophoresis, Serum Today M25.461 - Effusion, right knee, M25.50 - Pain in unspecified joint Uric Acid Today M25.461 - Effusion, right knee, M25.50 - Pain in unspecified joint Vitamin D 25-OH (D2 and D3) Today M25.461 - Effusion, right knee, M25.50 - Pain in unspecified joint Cyclic Citrullinated Peptide Today M25.461 - Effusion, right knee, M25.50 - Pain in unspecified joint PT Evaluation and Treatment Today M25.461 - Effusion, right knee, M70.61 - Trochanteric bursitis, right hip, M70.62 - Trochanteric bursitis, left hip Anti Extractable Nuclear Ag Today M25.461 - Effusion, right knee, M25.50 - Pain in unspecified joint Complete Blood Count Auto Diff Today M25.461 - Effusion, right knee, M25.50 - Pain in unspecified joint Immunofixation Pnl, Serum Today M25.461 - Effusion, right knee, M25.50 - Pain in unspecified joint Scleroderma 70 Antibody Today M25.461 - Effusion, right knee, M25.50 - Pain in unspecified joint T Spot TB Today M25.461 - Effusion, right knee, M25.50 - Pain in unspecified joint Hepatitis A,B,C Profile Today M25.461 - Effusion, right knee, M25.50 - Pain in unspecified joint Rheumatoid Factor Today M25.461 - Effusion, right knee, M25.50 - Pain in unspecified joint Medications: New meloxicam 15 mg PO DAILY 90 tabs 0RF M25.461 - Effusion, right knee, M25.50 - Pain in unspecified joint Coding Level of Care Code New Pt Level 4 (80248) Diagnoses Greater trochanteric bursitis of both hips M70.61; M70.62 Swelling of right knee joint M25.461 Pain in joint involving multiple sites M25.50 Primary osteoarthritis of both knees M17.0 Osteoarthritis type: primary
[2023-07-21 13:37] VITALS: BP 110/76; PULSE 97; O2SAT 68; BMI 34.2
== END 2023-07-21 14:27 | disposition home or self-care (01) ==
PROVIDERS: PCP Nurse Practitioner Family; Visit Provider Nurse Practitioner Family
DX: M70.61 Trochanteric bursitis, right hip (principal); M70.62 Trochanteric bursitis, left hip; M25.461 Effusion, right knee; M25.50 Pain in unspecified joint; M17.0 Bilateral primary osteoarthritis of knee
CPT/HCPCS: 99204

== ENCOUNTER → 2023-07-21 13:35 | Outpatient (BNVA) | payer OTHER, SELFPAY | PROVIDERS: PCP Nurse Practitioner Family; Visit Provider Nurse Practitioner Family ==

== ENCOUNTER 2023-07-26 14:30 | Outpatient (REF) | payer OTHER, SELFPAY ==
[2023-07-26 14:44] LABS: MANUAL DIFF FLAG NO
[2023-07-26 15:18] LABS: Basophils Percent Auto 0.2 % (0-2); Eosinophils Absolute Auto 0.1 X10*3/uL (0.0-0.4); Hematocrit 39.7 % (37.0-47.0); Hemoglobin 13.7 g/dl (12.0-16.0); Lymphocytes Absolute Auto 2.1 X10*3/uL (1.2-4.9); Lymphocytes Percent Auto 42.9 % (20-40); Mean Corpuscular HGB Conc 34.5 g/dl (31.0-35.0); Mean Corpuscular Hemoglobin 30.7 pg (27.0-33.0); Mean Platelet Volume 10.5 fL (9.4-12.3); Monocytes Absolute Auto 0.3 X10*3/uL (0.1-1.2); Monocytes Percent Auto 5.8 % (2-11); Neutrophils Absolute Auto 2.5 x10*3/uL (2.0-8.3); Neutrophils Percent Auto 49.1 % (45-73); Platelet Count 261 X10*3/uL (160-400); Red Blood Count 4.46 X10*6/uL (4.20-5.50); Red Cell Distribution Width 12.1 % (11.0-16.0)
[2023-07-26 16:02] LABS: Erythrocyte Sedimentation Rate 14 MM/HR (0-20)
[2023-07-26 17:25] LABS: Alanine Aminotransferase 21 U/L (0-31); Albumin Level 4.5 g/dL (3.5-5.0); Alkaline Phosphatase 82 U/L (39-117); Anion Gap 13 (12-20); Aspartate Amino Transferase 18 U/L (5-31); Bilirubin Total 0.3 mg/dL (0.0-1.0); Blood Urea Nitrogen 12 mg/dL (9-16); Calcium 9.4 mg/dL (8.4-10.2); Carbon Dioxide 26 mmol/L (22-29); Chloride 106 mmol/L (96-108); Estimated Glomerular Filt Rate > 60; Glucose Random 106 mg/dL (60-115); Potassium 3.9 mmol/L (3.3-5.1); Sodium 141 mmol/L (135-145); Total Protein 7.3 g/dL (6.5-8.0); Uric Acid 6.7 mg/dL (2.4-5.7)
[2023-07-26 18:44] LABS: Rheumatoid Factor < 13.0 IU/mL (<15.0)
[2023-07-27 05:14] LABS: HBS Num1 84.67 mIU/mL (0-7.99); HBc Num1 0.11 S/CO (0.00-0.79); HBsAGNum1 0.35 S/CO (0.00-0.99); Hepatitis A Antibody IgM 0.13 Index (0-0.79); Hepatitis B Core Antibody Nonreactive (Nonreactive); Hepatitis B Surface Antigen Negative (Negative); ~HepC Num1 0.12 S/CO (0.00-0.79); ~Hepatitis A Antibody IgM Nonreactive (Nonreactive); ~Hepatitis B Surface Antibody REACTIVE (Nonreactive); ~Hepatitis C Antibody Nonreactive (Nonreactive)
[2023-07-27 14:43] LABS: Cyclic Citrullinated Peptide <16 UNITS
[2023-07-27 20:43] LABS: Anti DNA DS Antibody <1 IU/mL; SM/Ribonucleoprotein Ab <1.0 NEG AI (<1.0 NEG); Scleroderma 70 Antibody <1.0 NEG AI (<1.0 NEG); Smith Protein <1.0 NEG AI (<1.0 NEG)
[2023-07-27 22:08] LABS: Prot Elec - Albumin 4.5 g/dL (3.8-4.8); Prot Elec - Alpha1 0.2 g/dL (0.2-0.3); Prot Elec - Alpha2 0.7 g/dL (0.5-0.9); Prot Elec - Beta 1 0.4 g/dL (0.4-0.6); Prot Elec - Beta 2 0.3 g/dL (0.2-0.5); Prot Elec - Gamma 0.8 g/dL (0.8-1.7); Prot Elec - Total Protein 6.9 g/dL (6.1-8.1)
[2023-07-28 11:34] LABS: IgA 108 mg/dL (47-310); IgG 856 mg/dL (600-1640); IgM 57 mg/dL (50-300)
[2023-07-28 22:28] LABS: TS Negative Control Passed; TS Panel A 0; TS Panel B 0; TS Positive Control Passed; TSpotTB Negative (Negative)
[2023-07-29 15:19] LABS: Vitamin D 25-OH, D2 <4 ng/mL; Vitamin D 25-OH, D3 24 ng/mL; Vitamin D 25-OH, Total 24 ng/mL (30-100)
[2023-07-30 10:54] LABS: Anti Nuclear Antibody Screen NEGATIVE (NEGATIVE)
== END 2023-07-26 14:31 | disposition home or self-care (01) ==
LOC: HO.LAB 14:30
PROVIDERS: PCP Nurse Practitioner Family; Visit Provider Nurse Practitioner Family
DX: Z11.1 Encounter for screening for respiratory tuberculosis (principal); M25.461 Effusion, right knee; M25.50 Pain in unspecified joint
CPT/HCPCS: 36415; 80053; 82306; 82550; 82784; 84165; 84550; 85025; 85652; 86038; 86200; 86225; 86235; 86334; 86431; 86481; 86704; 86706; 86709; 86803; 87340

== ENCOUNTER 2023-08-30 15:00 | Outpatient (RCR) | payer OTHER, SELFPAY ==
--- NOTE | 2023-08-11 14:55 | MHC.PT.EP ---
[facility] [place] Office [place] Office [place] Office [address] Amber Yanes [address] [phone] F: [phone] F: [phone] F: [phone] F: [phone] Physical Therapy Plan of Care Date of Evaluation: 08/11/23 Date of Surgery: N/A Diagnosis: trochanteric bursitis, bilateral (RL) Assessment: pt is a 47 y/o female presenting to physical therapy w/ referring diagnosis of trochanteric bursitis, bilateral. Impairments include pain, decreased range of motion, decreased strength, impaired functional mobility, impaired postural awareness, and altered ambulation mechanics. pt is a good candidate for skilled PT due to age, potential remediation of impairments, typical disease/condition progression and prognosis, comorbidities, and motivation. pt would benefit from skilled PT intervention to provide a tailored strengthening and stretching exercise program, functional training, gait training, postural re-training, neuromuscular re-education, modalities as needed for pain, equipment safety demonstration. Frequency and Duration: The patient will be seen 2x/wk for 4 wks Short Term Goals: pt will be I w/ HEP to promote self-management of condition. pt will demo proper sitting posture w/ lumbar roll to promote neutral spine w/ seated ADLs and work-related tasks. Materials Associate Goals: pt will report a statistically significant improvement in self-reported outcome measure, LEFI, to promote return to PLOF. pt ascend/descend stairs using reciprocal pattern and railing to promote ease in accessing primary living spaces and work spaces. Treatment Plan: Modalities to reduce pain, spasms and effusion. Manual therapy to restore motion and function. Therapeutic exercise to improve strength and flexibility. Neuromuscular re-education for posture and balance. Therapeutic activities to return to functional activities of daily living. Electronically signed by: Lauren Sosa PT, DPT Please sign and return to therapist. Thank you for your referral.
--- NOTE | 2023-09-13 16:09 | MHC.PT.DC ---
[facility] [place] Office [place] Office [place] Office [address] Amber Yanes [address] [phone] F: [phone] F: [phone] F: [phone] F: [phone] Physical Therapy Discharge Report Diagnosis: trochanteric bursitis, bilateral (RL) Date of Surgery: N/A Date of Evaluation: 08/11/23 Date of Discharge: 09/13/23 Treatments to Date: 2 Cancellations to Date: 5 No Shows to Date: 0 Discharge Status: Patient Elected to Stop Visit Non-compliance Discharge Summary: The patient by the time she had her PT evaluation was feeling better with change in medication. She was given some lower extremity strengthening exercises. She cancelled her last several appointments and has not followed up with anymore. The patient has not been seen in this office in two weeks. She is discharged at this time. Electronically signed by: Lauren Sosa PT, DPT Please sign and return to therapist. Thank you for your referral.
== END 2023-09-13 16:09 | disposition home or self-care (01) ==
LOC: HO.PT 15:00
PROVIDERS: PCP Nurse Practitioner Family; Visit Provider Nurse Practitioner Family
DX: M25.461 Effusion, right knee (principal); M70.61 Trochanteric bursitis, right hip; M70.62 Trochanteric bursitis, left hip
CPT/HCPCS: 97110; 97162

== ENCOUNTER 2023-10-24 12:37 | Outpatient (AMB) | payer OTHER, SELFPAY ==
--- NOTE | 2023-10-24 12:42 | MHC.OFFVIS ---
Vital Signs 10/24/23 12:51 Height 5 ft 6 in Weight 211 lb 13.828 oz BMI 34.2 BP 120/72 Blood Pressure Location Lt brachial Position Sitting Pulse 84 Pulse Source Pulse Oximeter Pulse Oximetry (%) 96 Oxygen Delivery Method Room Air Intake Visit Reasons: OA/Knee Pain/lm Intake Note: Patient presents for OA/knee pain. pain in every joint in my body Allergies Sulfa (Sulfonamide Antibiotics) [SULFA (SULFONAMIDE ANTIBIOTICS)] Allergy (Unknown, Verified 10/24/23 12:49) HIVES Medication List - Last Reconciled 10/24/23 by Elio Dodd MD acetaminophen (Tylenol) 325 mg PO QID PRN cetirizine (Zyrtec) 10 mg PO DAILY PRN cholecalciferol (vitamin D3) 100 mcg PO DAILY ibuprofen 400 mg PO BID PRN levothyroxine 25 mcg PO DAILY multivitamin 1 tab PO DAILY HPI Comments Details: Patient returns for a follow-up visit. She states that today is a good day. She has been taking ibuprofen 400 mg Twice daily. Meloxicam caused ankle swelling even when used every other day. She is recovering from a shingles infection, finish taking valacyclovir and feels that whenever she has an infection her joint pains improve. Previous history by Bere Gutierrez 07/2023: Ms. Lawrence, 47-year-old female, here for evaluation of multiple joint pain on referral from her primary care provider. The patient describes pain all over her joints, more prominent in her right knee, left shoulder, both hips and feet. She describes this has been ongoing for about a year and a half. [facility] and was provided with meloxicam. She does say that meloxicam helped the joint pain but on the advice of her PCP she had stopped it. She describes the pain to the right knee is more noticeable when she goes up and down the stairs and at times is significantly swollen. She has a feeling that her body is total pain. She also feels that there is decreased strength in her upper extremities. The bilateral hip pain makes it challenging to sleep at night and she has to consistently turn from [id number], but ends up sleeping on her back. By way of medical history she has hypothyroid subclinical, on 25 mcg of Synthroid. She has not has uveitis, rashes, sun sensitivity, Raynaud's, gout, Achilles tendonitis. By way of family history she has an aunt that has lupus and rheumatoid arthritis ON LICENSE OF [facility] Medical History Osteoarthritis of knees, bilateral Greater trochanteric bursitis of both hips Swelling of right knee joint Pain in joint involving multiple sites Hypothyroidism Right upper quadrant abdominal pain of unknown etiology Chronic leukopenia Family History Father Vascular disease Hypertension Thyroid disease Mother Thyroid disease Paternal Grandmother Heart disease Diabetes CVD (cardiovascular disease) Maternal Grandfather Osteoarthritis Maternal Aunt Lupus Social History Housing: House Unable to assess alcohol history related to: Unable to respond Alcohol intake: current Alcohol intake frequency: holidays/special occasions only Patient Tobacco Use Status: Never used Tobacco Current occupational status: employed Current occupation: [employer] [place] Female Reproductive History Menstrual Total pregnancies: 2 Full term: 2 Review of Systems [facility] [place] Reports arthralgias and Reports joint swelling Physical Exam Vital Signs: Last Vital Signs Pulse 84 10/24/23 12:51 BP 120/72 10/24/23 12:51 Pulse Ox 96 10/24/23 12:51 Oxygen Delivery Method Room Air 10/24/23 12:51 BMI result Body Mass Index 34.2 Const General: cooperative, healthy appearing and comfortable Nutritional Appearance: obese Orientation/consciousness: patient oriented x3 Limitations: no limitations HEENT Head: Yes normocephalic and Yes atraumatic Mouth: moist mucous membranes Resp Effort & Inspection: normal respiratory effort and able to speak in complete sentences Auscultation: clear to auscultation bilaterally Cardio Rate: regular rate Rhythm: regular rhythm Skin General skin exam: no rashes or lesions noted Neuro General: patient oriented x3 Extrem Other: No active synovitis Bilateral knee crepitus Normal nailfold capillaroscopy Few fibromyalgia tender points Assessment & Plan Assessment & Plan (1) Pain in joint involving multiple sites: Code(s): M25.50 - Pain in unspecified joint Category: Medical Plan: This is a 47-year-old female who presents for follow-up. Upon evaluation I do not see any signs suggestive of an autoimmune rheumatic disease. Clinical picture rather consistent with degenerative arthritis and fibromyalgia Discussed management of fibromyalgia with patient. Is a noninflammatory, non-autoimmune central afferent processing disorder leading to a diffuse pain syndrome. I suggested evaluation by a therapist and/or a psychiatrist to evaluate for any underlying anxiety/depression/PTSD. Try to follow sleep hygiene practices. Consider a referral for a sleep study by her PCP. Patient would benefit from increased physical activity, either through formal physical therapy or by joining a gym. Advised patient that she should start activity slowly and increase as tolerated. Consider low-impact exercises such as walking, swimming, aqua therapy stretching, yoga. Advised patient to return to clinic if she feels like she has a flare-up of her symptoms. To be re-evaluated for inflammatory arthritis (2) Positive ASH (antinuclear antibody): Code(s): R76.8 - Other specified abnormal immunological findings in serum Category: Medical Plan: Positive ASH in 2020, negative in 2023 with negative sub serologies and normal inflammatory markers. Significance of her positive ASH is unclear Plan I spent 30 minutes reviewing patient's chart, evaluating patient, counseling patient and documenting in the chart Coding Level of Care Code Est Pt Level 4 (00253) Diagnoses Pain in joint involving multiple sites M25.50 Positive ASH (antinuclear antibody) R76.8
[2023-10-24 12:51] VITALS: BP 120/72; PULSE 84; O2SAT 96; BMI 34.2
== END 2023-10-24 13:32 | disposition home or self-care (01) ==
PROVIDERS: PCP Nurse Practitioner Family; Visit Provider Student in an Organized Health Care Education/Training Program
DX: M25.50 Pain in unspecified joint (principal); R76.8 Other specified abnormal immunological findings in serum
CPT/HCPCS: 99214

== ENCOUNTER → 2023-10-24 12:37 | Outpatient (BNVA) | payer OTHER, SELFPAY | PROVIDERS: PCP Nurse Practitioner Family; Visit Provider Student in an Organized Health Care Education/Training Program ==

== ENCOUNTER 2023-10-27 13:47 | Outpatient (AMB) | payer OTHER, SELFPAY ==
--- NOTE | 2023-10-27 13:53 | MHC.PC.OV ---
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: No Is last menstrual period known: No (irregular) Allergies Sulfa (Sulfonamide Antibiotics) [SULFA (SULFONAMIDE ANTIBIOTICS)] Allergy (Unknown, Verified 10/27/23 13:53) HIVES Medication List - Last Reconciled 10/30/23 by Marguerite Hayes, BANQUET LINE COOK-BC acetaminophen (Tylenol) 325 mg PO QID PRN cetirizine (Zyrtec) 10 mg PO DAILY PRN cholecalciferol (vitamin D3) 100 mcg PO DAILY ibuprofen 400 mg PO BID PRN levothyroxine 25 mcg PO DAILY multivitamin 1 tab PO DAILY Tobacco use date assessed: 10/27/23 Dental Screening Dental Screen Date: 12/29/22 HPI HPI Comments History of Present Illness Details 47-year-old female with subclinical hypthyroid, chronic leukopenia, 0.5 cm nodule at the inferior aspect of the right thyroid lobe, hyperlipidemia Health Maintenance: ? Colon Cologuard 12/2022, next due 01/04/2026 ? Mammo 05/25/22, has repeat scheduled. ? DEXA ? PAP ? 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 Chart review done before today's visit. Labs from 07/26/2023 show a normal CBC, normal lytes, normal renal function, normal random glucose, elevated uric acid of 6.7, normal calcium, normal LFTs, normal total creatinine kinase, , vitamin-D 24, TSH 2.16 lipid profile from 01/13/2023 show normal triglycerides, elevated total cholesterol 251, LDL 178, HDL 56, vitamin-D 24, TSH 2.16 Her main concern today is that of chronic joint pain affecting multiple joints. She was recently told him a diagnosis of fibromyalgia. While she does admit some stressors, her story does not sound completely psychosomatic. She reports that her knees feel very weak when climbing 4 flights of stairs as if her knees can not handle it , she is intermittent swelling of her right knee that she described as a flare. Pain affects both knees. She also has pain in bilat hips. She is pain in her shoulders. All this pain is affecting her sleep. She would x-ray done of bilat knees in 2020, the reports were reviewed today, she reports that the x-ray was done during a time of swelling of the right knee. Findings were really nonspecific. She did complete physical therapy. She was told that she had muscle weakness. Despite completion of physical therapy her symptoms still exist. When she has having an flare she is unable to squat down or kneel on her knees. If she were to squat she would not be able to stand up even with physical assist as she feels very weak. She describes her physical pain as like a bruise , some joints are even tender to the touch this is her hips. She does have. Without pain. She can not correlate her pain with uptic in anxiety or stressors. She admits to gaining weight. Has a mostly sedentary job, however is very active despite this job. She has a history of vitamin-D deficiency which is longstanding, she has been managed on vitamin-D for several years now, she is also on levothyroxine for subclinical hypothyroid. Otherwise on a few [id number] medications. Does not like to take medications. Rheumatology consult reviewed. Sleep study recommended. Discuss this with her today. While she has no overt symptoms of sleep apnea, it may be worth it to check this in the future however I do not think that this is a priority at this time. She also recently had shingles for the second time, treated most recently w/ antivirals. Plan she has never had advanced imaging of her knees. As these seem to be the joints that bother her the most we will start with MRI of bilat knee. She has an absent ankle reflex on the right, therefore a brain MRI will be done. There is a concern for MS given the above. I will also do additional labs to further evaluate her chronic vitamin-D deficiency. I have asked her to follow up with Dermatology [facility] after evaluate the lesion on her back. We could consider an sleep study in the future if needed. Would like to bring her back once the imaging and labs are complete to discuss the results and come up with a plan. This note is constructed using voice recognition software. While every effort has been made to ensure accuracy in progress worker, still errors may have been included Sometimes, these errors may affect the content or meaning of the given sentence . Total time spent caring for the patient today was 45 minutes. This includes time spent before the visit reviewing the chart, time spent during the visit, and time spent after the visit on documentation [facility] Medical History Osteoarthritis of knees, bilateral Greater trochanteric bursitis of both hips Swelling of right knee joint Pain in joint involving multiple sites Hypothyroidism Right upper quadrant abdominal pain of unknown etiology Chronic leukopenia Family History Father Vascular disease Hypertension Thyroid disease Mother Thyroid disease Paternal Grandmother Heart disease Diabetes CVD (cardiovascular disease) Maternal Grandfather Osteoarthritis Maternal Aunt Lupus Social History Housing: House Unable to assess alcohol history related to: Unable to respond Alcohol intake: current Alcohol intake frequency: holidays/special occasions only Patient Tobacco Use Status: Never used Tobacco Current occupational status: employed Current occupation: [employer] Questionnaire Thrive Questionnaire Date Thrive assessed: 12/29/22 DONNA-7 AMB Questionnaire DONNA-7 Date DONNA - 7 assessed: 12/29/22 Source: Developed by Drs. Gustavo Hawk, Evangelina Mclaughlin, David Jose and colleagues, with an educational иван from [employer]. Review of Systems Neuro Reports Sensory deficit (Neuro) (abnormal vibratory sensation left lower ext) Physical exam (Primary Care) Vital Signs: Last Vital Signs Pulse 83 10/27/23 13:54 BP 102/80 10/27/23 13:54 Pulse Ox 96 10/27/23 13:54 Oxygen Delivery Method Room Air 10/27/23 13:54 BMI result Body Mass Index 34.4 BMI Assessment/Plan discussion: High BMI High, discussed plan: lifestyle Tobacco/Smoking Status: Tobacco use Status Tobacco use date assessed 10/27/23 10/27/23 13:54 Patient Tobacco Use Status Never used Tobacco 10/27/23 13:54 Thrive Assessment: Date of Thrive Assessment Date Thrive assessed 12/29/22 10/27/23 13:54 Const Other: awake alert NAD thyroid nontender RRR LS CTAB on posterior back proximal to scapula is a slightly raised jefferson nevus with crusting Has been with light tight over multiple joints to including but not limited to bilat scap, lumbar-sacral spine, hips & pelvis, bilat knees, shins, elbows. There is mild edema of R knee today otherwise no obvious joint swelling or deformity. I can feel something moving along the left medial epicondyle when her knee goes from flexion to extension. In regards to the knee her pain is mostly over the tibia proximal to the femur epicondyles, she also has a crepitus and fluid sensation in the right knee with flexion and extension Orientation/consciousness: patient oriented x3 Neuro General: patient oriented x3, tone normal, moves all extremities and normal sensation to monofilament Cognition (Neuro): normal cognition Gait exam (Neuro): Normal gait present Motor exam (neuro): 5/5 motor strength present throughout, no tremor noted, Normal motor muscle tone present throughout and Motor fasciculations present (of bilat thigh muscles & patella with extension of legs ) Sensory Exam: Sensory deficit (Neuro) (abnormal vibratory sensation left lower ext) Deep tendon reflexes (DTR's): Right patellar reflex intensity grade: 1+, Left patellar reflex intensity grade: 3+, Right ankle reflex intensity grade: 0 and Left ankle reflex intensity grade: 2+ Assessment and Plan Assessment & Plan (1) Bilateral knee pain: Code(s): M25.561 - Pain in right knee; M25.562 - Pain in left knee Qualifiers: Chronicity: chronic Qualified Code(s): M25.561 - Pain in right knee; M25.562 - Pain in left knee; G89.29 - Other chronic pain (2) Bilateral knee swelling: Code(s): M25.461 - Effusion, right knee; M25.462 - Effusion, left knee (3) Muscle weakness: Code(s): M62.81 - Muscle weakness (generalized) (4) Absent reflex of lower extremity: Code(s): R29.818 - Other symptoms and signs involving the nervous system (5) Hypothyroidism: Code(s): E03.9 - Hypothyroidism, unspecified Qualifiers: Hypothyroidism type: unspecified Qualified Code(s): E03.9 - Hypothyroidism, unspecified (6) Leukopenia: Code(s): D72.819 - Decreased white blood cell count, unspecified Qualifiers: Leukopenia type: unspecified Qualified Code(s): D72.819 - Decreased white blood cell count, unspecified (7) Vitamin D deficiency: Code(s): E55.9 - Vitamin D deficiency, unspecified Orders: Orders MR knee LT wo con 10/27/23 M25.461 - Effusion, right knee, M25.462 - Effusion, left knee, M25.561 - Pain in right knee, M25.562 - Pain in left knee, M62.81 - Muscle weakness (generalized) Calcium, Ionized Today D72.819 - Decreased white blood cell count, unspecified, E03.9 - Hypothyroidism, unspecified, E55.9 - Vitamin D deficiency, unspecified Phosphorus Today D72.819 - Decreased white blood cell count, unspecified, E03.9 - Hypothyroidism, unspecified, E55.9 - Vitamin D deficiency, unspecified Alkaline Phosphatase Bone Today D72.819 - Decreased white blood cell count, unspecified, E03.9 - Hypothyroidism, unspecified, E55.9 - Vitamin D deficiency, unspecified Magnesium Today D72.819 - Decreased white blood cell count, unspecified, E03.9 - Hypothyroidism, unspecified, E55.9 - Vitamin D deficiency, unspecified Hemoglobin A1c Today D72.819 - Decreased white blood cell count, unspecified, E03.9 - Hypothyroidism, unspecified, E55.9 - Vitamin D deficiency, unspecified TSH reflex Free T4 Today D72.819 - Decreased white blood cell count, unspecified, E03.9 - Hypothyroidism, unspecified, E55.9 - Vitamin D deficiency, unspecified IRON PROFILE Today D72.819 - Decreased white blood cell count, unspecified, E03.9 - Hypothyroidism, unspecified, E55.9 - Vitamin D deficiency, unspecified Zinc Today R29.818 - Other symptoms and signs involving the nervous system MR knee RT wo con 10/27/23 M25.461 - Effusion, right knee, M25.462 - Effusion, left knee, M25.561 - Pain in right knee, M25.562 - Pain in left knee, M62.81 - Muscle weakness (generalized) MR head/brain wo/w con Today M62.81 - Muscle weakness (generalized), R29.818 - Other symptoms and signs involving the nervous system Parathyroid Hormone Intact Today D72.819 - Decreased white blood cell count, unspecified, E03.9 - Hypothyroidism, unspecified, E55.9 - Vitamin D deficiency, unspecified Comprehensive [place]. Panel Fast Today D72.819 - Decreased white blood cell count, unspecified, E03.9 - Hypothyroidism, unspecified, E55.9 - Vitamin D deficiency, unspecified Vitamin D 25-OH (D2 and D3) Today D72.819 - Decreased white blood cell count, unspecified, E03.9 - Hypothyroidism, unspecified, E55.9 - Vitamin D deficiency, unspecified Complete Blood Count no Diff Today D72.819 - Decreased white blood cell count, unspecified, E03.9 - Hypothyroidism, unspecified, E55.9 - Vitamin D deficiency, unspecified Coding Level of Care Code Est Pt Level 5 (58886) Complex EM visit Add On G2211 Diagnoses Chronic pain of both knees M25.561; M25.562; G89.29 Chronicity: chronic Bilateral knee swelling M25.461; M25.462 Muscle weakness M62.81 Absent reflex of lower extremity R29.818 Hypothyroidism, unspecified type E03.9 Hypothyroidism type: unspecified Leukopenia, unspecified type D72.819 Leukopenia type: unspecified Vitamin D deficiency E55.9
[2023-10-27 13:54] VITALS: BP 102/80; PULSE 83; O2SAT 96; BMI 34.4
== END 2023-10-27 15:20 | disposition home or self-care (01) ==
PROVIDERS: PCP Nurse Practitioner Family; Visit Provider Nurse Practitioner Family
DX: M25.561 Pain in right knee (principal); M25.562 Pain in left knee; G89.29 Other chronic pain; M25.461 Effusion, right knee; M25.462 Effusion, left knee; M62.81 Muscle weakness (generalized); R29.818 Other symptoms and signs involving the nervous system; E03.9 Hypothyroidism, unspecified; D72.819 Decreased white blood cell count, unspecified; E55.9 Vitamin D deficiency, unspecified
CPT/HCPCS: 99215

== ENCOUNTER 2023-11-02 07:55 | Outpatient (REF) | payer OTHER, SELFPAY ==
[2023-11-02 09:01] LABS: Hematocrit 40.3 % (37.0-47.0); Hemoglobin 13.8 g/dl (12.0-16.0); Mean Corpuscular HGB Conc 34.2 g/dl (31.0-35.0); Mean Corpuscular Hemoglobin 30.4 pg (27.0-33.0); Mean Corpuscular Volume 88.8 fL (80.0-98.0); Mean Platelet Volume 10.1 fL (9.4-12.3); Platelet Count 201 X10*3/uL (160-400); Red Blood Count 4.54 X10*6/uL (4.20-5.50); Red Cell Distribution Width 12.3 % (11.0-16.0); White Blood Count 3.9 X10*3/uL (4.8-10.8)
[2023-11-02 09:05] LABS: Estimated Average Glucose 108 mg/dL; Hemoglobin A1c % 5.4 % (<6.0)
[2023-11-02 09:36] LABS: Alanine Aminotransferase 27 U/L (0-31); Albumin Level 4.6 g/dL (3.5-5.0); Alkaline Phosphatase 66 U/L (39-117); Anion Gap 15 (12-20); Aspartate Amino Transferase 21 U/L (5-31); Bilirubin Total 0.5 mg/dL (0.0-1.0); Blood Urea Nitrogen 13 mg/dL (9-16); Carbon Dioxide 26 mmol/L (22-29); Chloride 104 mmol/L (96-108); Estimated Glomerular Filt Rate > 60; Glucose Fasting 95 mg/dL (60-99); Iron 93 mcg/dL (30-160); Magnesium 2.2 mg/dL (1.6-2.6); Percent Iron Saturation 33 % (15-50); Phosphorus 3.6 mg/dL (2.7-4.5); Potassium 4.5 mmol/L (3.3-5.1); Sodium 140 mmol/L (135-145); Total Iron Binding Capacity 283 mcg/dL (228-428); Total Protein 7.2 g/dL (6.5-8.0); Unsaturated Iron Binding 190 ug/dL
[2023-11-02 09:46] LABS: Parathyroid Hormone Intact 98.7 pg/mL (8.7-77.1)
[2023-11-02 09:54] LABS: TSH reflex Free T4 1.81 uIU/mL (0.32-4.0)
[2023-11-04 12:33] LABS: Calcium, Ionized 5.1 mg/dL (4.7-5.5)
[2023-11-06 15:47] LABS: Vitamin D 25-OH, D2 <4 ng/mL; Vitamin D 25-OH, D3 31 ng/mL; Vitamin D 25-OH, Total 31 ng/mL (30-100)
[2023-11-07 01:38] LABS: Zinc 71 mcg/dL (60-130)
[2023-11-07 15:37] LABS: Alkaline Phosphatase Bone 14.6 mcg/L (5.0-18.8)
== END 2023-11-02 07:56 | disposition home or self-care (01) ==
LOC: HO.LAB 07:55
PROVIDERS: PCP Nurse Practitioner Family; Visit Provider Nurse Practitioner Family
DX: E03.9 Hypothyroidism, unspecified (principal); D72.819 Decreased white blood cell count, unspecified; E55.9 Vitamin D deficiency, unspecified; R29.818 Other symptoms and signs involving the nervous system; Z13.1 Encounter for screening for diabetes mellitus
CPT/HCPCS: 36415; 80053; 82306; 82330; 83036; 83540; 83735; 83970; 84075; 84100; 84443; 84630; 85027

== ENCOUNTER 2023-11-06 07:54 | Outpatient (REF) | payer OTHER, SELFPAY | END 2023-11-06 07:55 | disposition home or self-care (01) | LOC: HO.MAMMO 07:54 | PROVIDERS: PCP Nurse Practitioner Family; Visit Provider Nurse Practitioner Family | DX: Z12.31 Encounter for screening mammogram for malignant neoplasm of breast (principal) | CPT/HCPCS: 77063; 77067 ==

== ENCOUNTER → 2023-11-06 08:00 | Outpatient (BNV) | payer OTHER, SELFPAY | PROVIDERS: PCP Nurse Practitioner Family; Visit Provider Radiology Diagnostic Radiology | DX: Z12.31 Encounter for screening mammogram for malignant neoplasm of breast (principal) | CPT/HCPCS: 77063; 77067 ==

== ENCOUNTER 2023-11-08 10:53 | Outpatient (REF) | payer OTHER, SELFPAY ==
--- NOTE | ~2023-11-08 | MR_ITS ---
EXAMINATION: MR HEAD/BRAIN WITHOUT AND WITH CONTRAST MR CERVICAL SPINE WITHOUT AND WITH CONTRAST CLINICAL INFORMATION: Signs and symptoms involving the nervous system. Rule out multiple sclerosis. Please include imaging of the parathyroids as there is elevated PTH. COMPARISON: Thyroid ultrasound 01/17/2023. TECHNIQUE: Unenhanced and IV contrast-enhanced demyelinating protocol MRI of the brain including sagittal FLAIR images. Unenhanced and IV contrast-enhanced demyelinating protocol MRI of the cervical spine. Intravenous Contrast: Gadavist 10 mL. FINDINGS: MRI BRAIN: Diffusion-weighted images demonstrate no evidence of acute infarcts. The ventricles and sulci are normal in size and configuration. A 3 mm nonenhancing T2 hyperintensity is present in the juxtacortical white matter of the left middle frontal lobe gyrus (series 6 image 15). A single 2 mm subcortical T2 hyperintensity without enhancement is noted in the anterior aspect of the right superior frontal lobe gyrus (series 4 image 17). No periventricular foci of signal alteration noted. Normal appearance of the middle cerebellar peduncles. No abnormal extra-axial fluid collections. Susceptibility weighted images demonstrate no evidence of acute or chronic hemorrhage within the brain parenchyma. Normal flow-related signal intensity is identified in the major intracranial vessels and dural sinuses. The orbits and globes are normal in appearance. Mild mucosal thickening and retained secretions are identified in the right frontal sinus. Within the remainder of the paranasal sinuses, mastoid air cells and middle ear cavities, no significant mucosal thickening or retained secretions visualized. The craniocervical junction cerebellar tonsils are normal in appearance. Convex inward configuration of the superior margin the pituitary is noted and is a frequently encountered asymptomatic anatomic variant (empty sella configuration). No suspicious marrow abnormalities identified. No abnormal enhancement the brain parenchyma visualized. MRI CERVICAL SPINE: Vertebral body height, alignment and marrow signal intensity are normal in appearance. The cervical spinal cord is normal in caliber, contour and signal intensity. The thyroid is partially included in the image [id number] and demonstrates no gross abnormalities. No adjacent indeterminate nodules are identified to suggest fortuitous visualization of a possible parathyroid adenoma though this examination does not constitute a full and dedicated MR exam of the neck. C2-C3: No central or foraminal stenoses. Normal intervertebral disc. C3-C4: No central or foraminal stenoses. Normal intervertebral disc. C4-C5: No central or foraminal stenoses. Normal intervertebral discs. C5-C6: Mild central disc protrusion minimally effacing the ventral thecal sac CSF space. Normal intervertebral disc height. No foraminal stenoses. C6-C7: Moderate right foraminal stenosis. Mild left foraminal stenosis. Findings arise secondary to a mild posterior broad-based disc-osteophyte complex with focal prominence of the right uncovertebral joint incorporation with approximately 50% right foraminal narrowing. Furthermore, a 2 mm x 1 mm Tarlov cyst is noted in the left neural foramen. C7-T1: No central foraminal stenoses. Incidental note made of bilateral Tarlov cysts each measuring approximately 2 cm in diameter. T1-T2: A 4 mm x 3 mm incidental Tarlov cyst is noted in the right neural foramen. No abnormal enhancement of the cervical spinal cord is visualized. MR/MR head/brain wo/w con IMPRESSION: UNENHANCED AND IV CONTRAST-ENHANCED MRI OF THE BRAIN: *No definitive abnormalities. No specific evidence of demyelinating disease. Of note, a single 3 mm nonenhancing focus of signal alteration (T2 hyperintensity) is present in the juxtacortical left frontal lobe and a single 2 mm nonenhancing T2 hyperintensity is present in the right frontal lobe as detailed above. Similar findings are a frequently encountered asymptomatic finding and are therefore of uncertain clinical significance. Unenhanced and IV contrast-enhanced MRI of the brain is otherwise normal. UNENHANCED AND IV CONTRAST-ENHANCED MRI OF THE CERVICAL SPINE: *No evidence of demyelinating disease. *C6-C7 moderate right foraminal stenosis and mild left foraminal stenosis. *C5-C6 mild central disc protrusion without significant central or foraminal stenosis. *Within the visualized portions of the neck, no findings suspicious for fortuitous visualization of a parathyroid adenoma. Of note, this examination is comprised of a dedicated MRI of the cervical spine which is not fully visualized neck.
[2023-11-08] MEDS: gadobutroL 10 ML VIAL IVPUSH (12:39)
== END 2023-11-08 10:54 | disposition home or self-care (01) ==
LOC: HO.MRI 10:53
PROVIDERS: PCP Nurse Practitioner Family; Visit Provider Nurse Practitioner Family
DX: R29.818 Other symptoms and signs involving the nervous system (principal); M62.81 Muscle weakness (generalized)
CPT/HCPCS: 70553; A9585

== ENCOUNTER 2023-11-10 10:50 | Outpatient (REF) | payer OTHER, SELFPAY ==
--- NOTE | ~2023-11-10 | MR_ITS ---
EXAMINATION: MR HEAD/BRAIN WITHOUT AND WITH CONTRAST MR CERVICAL SPINE WITHOUT AND WITH CONTRAST CLINICAL INFORMATION: Signs and symptoms involving the nervous system. Rule out multiple sclerosis. Please include imaging of the parathyroids as there is elevated PTH. COMPARISON: Thyroid ultrasound 01/17/2023. TECHNIQUE: Unenhanced and IV contrast-enhanced demyelinating protocol MRI of the brain including sagittal FLAIR images. Unenhanced and IV contrast-enhanced demyelinating protocol MRI of the cervical spine. Intravenous Contrast: Gadavist 10 mL. FINDINGS: MRI BRAIN: Diffusion-weighted images demonstrate no evidence of acute infarcts. The ventricles and sulci are normal in size and configuration. A 3 mm nonenhancing T2 hyperintensity is present in the juxtacortical white matter of the left middle frontal lobe gyrus (series 6 image 15). A single 2 mm subcortical T2 hyperintensity without enhancement is noted in the anterior aspect of the right superior frontal lobe gyrus (series 4 image 17). No periventricular foci of signal alteration noted. Normal appearance of the middle cerebellar peduncles. No abnormal extra-axial fluid collections. Susceptibility weighted images demonstrate no evidence of acute or chronic hemorrhage within the brain parenchyma. Normal flow-related signal intensity is identified in the major intracranial vessels and dural sinuses. The orbits and globes are normal in appearance. Mild mucosal thickening and retained secretions are identified in the right frontal sinus. Within the remainder of the paranasal sinuses, mastoid air cells and middle ear cavities, no significant mucosal thickening or retained secretions visualized. The craniocervical junction cerebellar tonsils are normal in appearance. Convex inward configuration of the superior margin the pituitary is noted and is a frequently encountered asymptomatic anatomic variant (empty sella configuration). No suspicious marrow abnormalities identified. No abnormal enhancement the brain parenchyma visualized. MRI CERVICAL SPINE: Vertebral body height, alignment and marrow signal intensity are normal in appearance. The cervical spinal cord is normal in caliber, contour and signal intensity. The thyroid is partially included in the image [id number] and demonstrates no gross abnormalities. No adjacent indeterminate nodules are identified to suggest fortuitous visualization of a possible parathyroid adenoma though this examination does not constitute a full and dedicated MR exam of the neck. C2-C3: No central or foraminal stenoses. Normal intervertebral disc. C3-C4: No central or foraminal stenoses. Normal intervertebral disc. C4-C5: No central or foraminal stenoses. Normal intervertebral discs. C5-C6: Mild central disc protrusion minimally effacing the ventral thecal sac CSF space. Normal intervertebral disc height. No foraminal stenoses. C6-C7: Moderate right foraminal stenosis. Mild left foraminal stenosis. Findings arise secondary to a mild posterior broad-based disc-osteophyte complex with focal prominence of the right uncovertebral joint incorporation with approximately 50% right foraminal narrowing. Furthermore, a 2 mm x 1 mm Tarlov cyst is noted in the left neural foramen. C7-T1: No central foraminal stenoses. Incidental note made of bilateral Tarlov cysts each measuring approximately 2 cm in diameter. T1-T2: A 4 mm x 3 mm incidental Tarlov cyst is noted in the right neural foramen. No abnormal enhancement of the cervical spinal cord is visualized. MR/MR cervical spine wo/w con IMPRESSION: UNENHANCED AND IV CONTRAST-ENHANCED MRI OF THE BRAIN: *No definitive abnormalities. No specific evidence of demyelinating disease. Of note, a single 3 mm nonenhancing focus of signal alteration (T2 hyperintensity) is present in the juxtacortical left frontal lobe and a single 2 mm nonenhancing T2 hyperintensity is present in the right frontal lobe as detailed above. Similar findings are a frequently encountered asymptomatic finding and are therefore of uncertain clinical significance. Unenhanced and IV contrast-enhanced MRI of the brain is otherwise normal. UNENHANCED AND IV CONTRAST-ENHANCED MRI OF THE CERVICAL SPINE: *No evidence of demyelinating disease. *C6-C7 moderate right foraminal stenosis and mild left foraminal stenosis. *C5-C6 mild central disc protrusion without significant central or foraminal stenosis. *Within the visualized portions of the neck, no findings suspicious for fortuitous visualization of a parathyroid adenoma. Of note, this examination is comprised of a dedicated MRI of the cervical spine which is not fully visualized neck.
[2023-11-10] MEDS: gadobutroL 10 ML VIAL IVPUSH (12:17)
== END 2023-11-10 10:51 | disposition home or self-care (01) ==
LOC: HO.MRI 10:50
PROVIDERS: PCP Nurse Practitioner Family; Visit Provider Nurse Practitioner Family
DX: R29.818 Other symptoms and signs involving the nervous system (principal); M62.81 Muscle weakness (generalized); R79.89 Other specified abnormal findings of blood chemistry
CPT/HCPCS: 72156; A9585

== ENCOUNTER 2023-11-15 14:04 | Outpatient (REF) | payer OTHER, SELFPAY ==
--- NOTE | ~2023-11-15 | MR_ITS ---
EXAMINATION: MR KNEE WITHOUT CONTRAST, RIGHT CLINICAL INFORMATION: Pain in the right knee. COMPARISON: X-ray of the right knee 12/01/2022. TECHNIQUE: MRI of the knee without contrast was performed using routine sequences on a high-field scanner. FINDINGS: MENISCI: Medial Meniscus: Intact. Lateral Meniscus: Intact. LIGAMENTS: Cruciate: Intact. Collateral: Intact. EXTENSOR MECHANISM: Intact. ARTICULAR CARTILAGE/BONE: Patellofemoral Compartment: There is localized high-grade cartilage loss involving the distal third of the lateral facet of the patella with associated subchondral cystic change. Adjacent high-grade cartilage loss in the proximal lateral trochlea with associated subchondral cystic change. The medial facet of the patella is normal. There is a small fissure in the medial trochlea. There is lateral translation of the patella and abnormal patella tilt (patella tilt angle -10 degrees). Findings indicative of a moderate osteoarthritis. Medial Compartment: Small marginal osteophytes. Cartilage grossly intact. Overall minimal arthrosis. Lateral Compartment: Small marginal osteophytes. Cartilage grossly intact overall minimal arthrosis. JOINT FLUID AND BURSAE: Mild joint effusion. MR/MR knee RT wo con IMPRESSION: 1. Moderate osteoarthritis of the patellofemoral compartment. 2. Minimal arthrosis of the medial and lateral compartments. 3. Mild joint effusion.
== END 2023-11-15 14:05 | disposition home or self-care (01) ==
LOC: HO.MRI 14:04
PROVIDERS: PCP Nurse Practitioner Family; Visit Provider Nurse Practitioner Family
DX: M25.561 Pain in right knee (principal); M25.461 Effusion, right knee; M62.81 Muscle weakness (generalized)
CPT/HCPCS: 73721

== ENCOUNTER 2023-12-11 11:15 | Outpatient (REF) | payer OTHER, SELFPAY ==
--- NOTE | ~2023-12-11 | MR_ITS ---
EXAMINATION: MR KNEE WITHOUT CONTRAST, LEFT CLINICAL INFORMATION: Left knee pain and swelling. COMPARISON: Left knee radiographs dated 12/01/2020. TECHNIQUE: MRI of the knee without contrast was performed using routine sequences on a high-field scanner. FINDINGS: MENISCI: Medial Meniscus: Mild edema along the periphery of the posterior horn which could indicate a nondisplaced meniscocapsular injury. No articular surface meniscal tear. Lateral Meniscus: Intact LIGAMENTS: Cruciate: Intact Collateral: Mild edema along the periphery of the medial collateral ligament consistent with an acute grade 1 sprain/partial tear. Intact fibular collateral ligament. EXTENSOR MECHANISM: Intact quadriceps and patellar tendons. TT TG distance within normal limits. No patella krista. Edema within the superolateral aspect of Hoffa's fat pad, which can be seen in the setting of patellar tendon lateral femoral condyle friction syndrome. Subcutaneous edema ventral to the patella which could represent a soft tissue contusion versus early prepatellar bursitis. ARTICULAR CARTILAGE/BONE: Patellofemoral Compartment: Lateral patellar facet articular cartilage thinning with inferior full-thickness fissure and minimal subchondral cystic change. Medial patellar facet articular cartilage signal heterogeneity. Tiny marginal osteophytes. Medial Compartment: Intact articular cartilage. Lateral Compartment: Intact articular cartilage. JOINT FLUID AND BURSAE: Trace joint effusion and trace Samson's cyst. MR/MR knee LT wo con IMPRESSION: 1. Mild edema along the periphery of the medial meniscus posterior horn which could indicate a nondisplaced meniscocapsular injury. No articular surface meniscal tear. 2. Grade 1 sprain/partial tear of the medial collateral ligament. 3. Edema within the superolateral aspect of Hoffa's fat pad, which can be seen in the setting of patellar tendon lateral femoral condyle friction syndrome. 4. Mild patellofemoral arthrosis. Trace joint effusion and trace Samson's cyst. Electronically signed by: Wilner Clarke MD 12/13/2023 06:11 AM EDT
== END 2023-12-11 11:16 | disposition home or self-care (01) ==
LOC: HO.MRI 11:15
PROVIDERS: PCP Nurse Practitioner Family; Visit Provider Nurse Practitioner Family
DX: M25.562 Pain in left knee (principal); M25.462 Effusion, left knee; M62.81 Muscle weakness (generalized)
CPT/HCPCS: 73721

== ENCOUNTER 2024-01-03 10:50 | Outpatient (AMB) | payer OTHER, SELFPAY ==
[2024-01-03 11:00] VITALS: BP 118/88; BMI 34.8
--- NOTE | 2024-01-03 11:00 | MHC.OFFVIS ---
Vital Signs 01/03/24 11:00 Height 5 ft 6 in Weight 215 lb 8 oz BMI 34.8 BP 118/88 Blood Pressure Location Rt brachial Position Sitting Intake Visit Reasons: INP: see referral Intake Note: Patient presents for no reflex on right foot. Allergies Sulfa (Sulfonamide Antibiotics) [SULFA (SULFONAMIDE ANTIBIOTICS)] Allergy (Unknown, Verified 01/03/24 11:05) HIVES Medication List - Last Reconciled 01/03/24 by BEVERLY Bearden acetaminophen (Tylenol) 325 mg PO QID PRN cetirizine (Zyrtec) 10 mg PO DAILY PRN cholecalciferol (vitamin D3) 100 mcg PO DAILY ibuprofen 400 mg PO BID PRN levothyroxine 25 mcg PO DAILY multivitamin 1 tab PO DAILY HPI Comments Details: 48-yr-old female presents for neurological evaluation of abnormal cerrvical and brain MRIs. Pt reports she has had joint pain, which started as bottom of bilateral heels through ankles in ~ 2016. She saw Dr Randle, rheumatology. Had positive ASH. She was started her on Meloxicam which was helpful as long as she would taking it. Then, over time, she started having R > L knee pain, which was responsive to Meloxicam. Over time, she started having episodes of bilateral R > L, knee swelling, warmth. She has flare-ups of the joint pain and swelling. She did stop Meloxicam as it worsened distal ankle swelling. She did see rheumatology again, lab work-up was unremarkable. Dr Dodd felt this was fibromyalgia. She has done PT, which helped some, but not fully. Has not been able to do home exercises as much recently d/t recent work schedule. Since seeing rheumatology, pt has had elsa knee MRI- which is notable for Rt knee arthrosis, osteoarthritic changes, mild effusion. And Lt knee- Mild edema along the periphery of the medial meniscus posterior horn which could indicate a nondisplaced meniscocapsular injury. Grade 1 sprain/partial tear of the medial collateral ligament. Edema within the superolateral aspect of Hoffa's fat pad. Mild patellofemoral arthrosis. Trace joint effusion and trace Samson's cyst. Pt states she has since been referred to ortho. Brain MRI w.wo was unremarkable. C-spine MRI showed C6-C7 moderate right foraminal stenosis and mild left foraminal stenosis, and C5-C6 mild central disc protrusion without significant central or foraminal stenosis. She also has neck pain and tightness, cervical extension when laying down elicits shooting pain into left upper trap region. Can have episodes of left shoulder pain. Left shoulder region muscular pain- like touching a bruise. Can feel cognitive fog at x's. Can wake up in the am w/ bilateral band like pressure RIVERA w/o migraines s/s. She does snore and endorse fatigue. She is feeling bouts of weakness. For instance, recently could not push open a heavy door while at work. She denies notable numbness/tingling, other skin color changes, B&B changes, restless legs, frequent leg cramps. Denies episodic paresthesias, clumsiness. 11/07 and 11/10/23, MR/MR head/brain wo/w con IMPRESSION: No definitive abnormalities. No specific evidence of demyelinating disease. Of note, a single 3 mm nonenhancing focus of signal alteration (T2 hyperintensity) is present in the juxtacortical left frontal lobe and a single 2 mm nonenhancing T2 hyperintensity is present in the right frontal lobe as detailed above. Similar findings are a frequently encountered asymptomatic finding and are therefore of uncertain clinical significance. Unenhanced and IV contrast-enhanced MRI of the brain is otherwise normal. UNENHANCED AND IV CONTRAST-ENHANCED MRI OF THE CERVICAL SPINE: *No evidence of demyelinating disease. *C6-C7 moderate right foraminal stenosis and mild left foraminal stenosis. *C5-C6 mild central disc protrusion without significant central or foraminal stenosis. *Within the visualized portions of the neck, no findings suspicious for fortuitous visualization of a parathyroid adenoma. Of note, this examination is comprised of a dedicated MRI of the cervical spine which is not fully visualized neck. 11/15/23, MR/MR knee RT wo con IMPRESSION: 1. Moderate osteoarthritis of the patellofemoral compartment. 2. Minimal arthrosis of the medial and lateral compartments. 3. Mild joint effusion. 12/11/23, MR/MR knee LT wo con IMPRESSION: 1. Mild edema along the periphery of the medial meniscus posterior horn which could indicate a nondisplaced meniscocapsular injury. No articular surface meniscal tear. 2. Grade 1 sprain/partial tear of the medial collateral ligament. 3. Edema within the superolateral aspect of Hoffa's fat pad, which can be seen in the setting of patellar tendon lateral femoral condyle friction syndrome. 4. Mild patellofemoral arthrosis. Trace joint effusion and trace Samson's cyst. [facility] Medical History (Updated 01/03/24 @ 18:27 by BEVERLY Bearden) Absent reflex of lower extremity Osteoarthritis of knees, bilateral Greater trochanteric bursitis of both hips Swelling of right knee joint Pain in joint involving multiple sites Hypothyroidism Right upper quadrant abdominal pain of unknown etiology Chronic leukopenia Family History Father Vascular disease Hypertension Thyroid disease Mother Thyroid disease Paternal Grandmother Heart disease Diabetes CVD (cardiovascular disease) Maternal Grandfather Osteoarthritis Maternal Aunt Lupus Social History Housing: House Unable to assess alcohol history related to: Unable to respond Alcohol intake: current Alcohol intake frequency: holidays/special occasions only Patient Tobacco Use Status: Never used Tobacco Current occupational status: employed Current occupation: [employer] [place] Exam Vital Signs: Last Vital Signs BP 118/88 01/03/24 11:00 BMI result Body Mass Index 34.8 Const General: cooperative and no acute distress Orientation/consciousness: patient oriented x3 HEENT Head: Yes normocephalic Resp Effort & Inspection: normal respiratory effort and able to speak in complete sentences Neuro Other: Bilateral posterior cervical and upper trap tightness. Cervical ROM: full Left Spurling: normal Right Spurling: normal. No UE tone. Badillo's negative. General: patient oriented x3, CN's II-XI intact bilaterally (w/ mild R > L check asymmetry- ? d/t clenching) and deep tendon reflexes 2+ bilaterally Gait exam (Neuro): Normal gait present Motor exam (neuro): 5/5 motor strength present throughout Psych Appearance: grossly normal Mental Status: mental status grossly normal Speech and movement: Normal speech and movement present Affect: normal affect Attitude: cooperative Thought process: Normal thought process present Thought content: Normal thought content present Insight: Good insight present (Psych) Assessment & Plan Assessment & Plan (1) Osteoarthritis of knees, bilateral: Code(s): M17.0 - Bilateral primary osteoarthritis of knee Category: Medical Qualifiers: Osteoarthritis type: primary Qualified Code(s): M17.0 - Bilateral primary osteoarthritis of knee (2) Abnormal brain MRI: Code(s): R90.89 - Other abnormal findings on diagnostic imaging of central nervous system Category: Medical (3) Abnormal MRI, cervical spine: Code(s): R93.7 - Abnormal findings on diagnostic imaging of other parts of musculoskeletal system Category: Medical (4) Fatigue: Code(s): R53.83 - Other fatigue Category: Medical Plan Reviewed brain MRI w/wo- a single 3 mm nonenhancing T2 hyperintensity of signal alteration in the juxtacortical left frontal lobe and a single 2 mm nonenhancing T2 hyperintensity is present in the right frontal lobe. These isolated lesions are small and are not in and of them selves reflective of a demyelinating process. Reviewed c-spine MRI- no evidence of cervical cord lesion to suggest a demyelinating process. MRI does show C6-C7 moderate right foraminal stenosis and mild left foraminal stenosis and C5-C6 mild central disc protrusion without significant central or foraminal stenosis. Pt's history (no h/o c/w MS attack/relapse or clinically isolated attack) and exam (negative Badillo's, no spasticity, no hyperreflexia, no weakness) is reassuring and does not currently support a demyelinating process. Pt is advised to have orthopedic consult. Pt is advised to increase physical activity, especially water therapy/aerobics, as this is helpful in fibromyalgia but also in osteroarthritis. Pt advised to undergo HST to assess for sleep apnea, as this may be contributing to am headaches, cognitive s/s. Trial OTC Magnesium 250-500mg qhs. Pt seen in c/w Dr Rebecca Treadwell. Orders: Orders RT home sleep study Today R06.83 - Snoring, R51.9 - Headache, unspecified, R53.83 - Other fatigue Scribe Plan - Not visible on output: Patient seen in collaboration with Dr. Treadwell. Coding Level of Care Code New Pt Level 4 (54839) Diagnoses Primary osteoarthritis of both knees M17.0 Osteoarthritis type: primary Abnormal brain MRI R90.89 Abnormal MRI, cervical spine R93.7 Fatigue R53.83
== END 2024-01-03 12:28 | disposition home or self-care (01) ==
PROVIDERS: PCP Nurse Practitioner Family; Visit Provider Nurse Practitioner Family
DX: M17.0 Bilateral primary osteoarthritis of knee (principal); R90.89 Other abnormal findings on diagnostic imaging of central nervous system; R93.7 Abnormal findings on diagnostic imaging of other parts of musculoskeletal system; R53.83 Other fatigue
CPT/HCPCS: 99204

== ENCOUNTER → 2024-01-03 10:50 | Outpatient (BNVA) | payer OTHER, SELFPAY | PROVIDERS: PCP Nurse Practitioner Family; Visit Provider Nurse Practitioner Family ==

== ENCOUNTER 2024-07-11 14:28 | Outpatient (REF) | payer OTHER, SELFPAY ==
--- NOTE | ~2024-07-11 | XR_ITS ---
CLINICAL HISTORY: M79.673 - Pain in unspecified foot 3 view left foot Comparison: None Findings: Bones intact. No dislocations. No significant loss of joint space, osteophytes, or erosions. No ankle effusion. No radiopaque foreign body. IMPRESSION: 1. No acute findings. This document has been electronically signed by: Christiano Hurd MD on 07/12/2024 08:36:04
--- NOTE | ~2024-07-11 | XR_ITS ---
CLINICAL HISTORY: M79.673 - Pain in unspecified foot 3 view right foot Comparison: None Findings: Bones intact. No dislocations. No significant arthritic change or erosions. No ankle effusion. No radiopaque foreign body. IMPRESSION: 1. No acute findings. This document has been electronically signed by: Christiano Hurd MD on 07/12/2024 08:36:14
== END 2024-07-11 14:29 | disposition home or self-care (01) ==
LOC: HO.XRAY 14:28
PROVIDERS: PCP Nurse Practitioner Family; Visit Provider Nurse Practitioner Family
DX: M79.671 Pain in right foot (principal); M79.672 Pain in left foot
CPT/HCPCS: 73630

== ENCOUNTER → 2024-07-11 14:30 | Outpatient (BNV) | payer OTHER, SELFPAY | PROVIDERS: PCP Nurse Practitioner Family; Visit Provider Specialist | DX: M79.671 Pain in right foot (principal); M79.672 Pain in left foot | CPT/HCPCS: 73630 ==

== ENCOUNTER 2024-09-19 13:04 | Outpatient (AMB) | payer OTHER, SELFPAY ==
--- NOTE | 2024-09-19 13:15 | A.OFFPC_ITS ---
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 Allergies Sulfa (Sulfonamide Antibiotics) [SULFA (SULFONAMIDE ANTIBIOTICS)] Allergy (Unknown, Verified 09/19/24 13:16) HIVES Medication List - Last Reconciled 09/19/24 by Marguerite Hayes, HOST/[employer]ESS [employer] acetaminophen (Tylenol) 325 mg PO QID PRN bupropion HCl XL (Wellbutrin XL) 150 mg PO QAM cetirizine (Zyrtec) 10 mg PO DAILY PRN cholecalciferol (vitamin D3) 100 mcg PO DAILY ibuprofen 400 mg PO BID PRN levothyroxine 25 mcg PO DAILY multivitamin 1 tab PO DAILY Tobacco use date assessed: 09/19/24 Dental Screening Dental Screen Date: 09/19/24 Did you have a dental visit in the last 12 months?: Yes Did you have a dental problem in the last 6 months where you did not have access to dental care?: No Was dental information given to patient?: Patient has dentist HPI HPI Comments History of Present Illness Details 48 year-old female with subclinical hypo thyroid, chronic leukopenia, 0.5 cm nodule at the inferior aspect of the right thyroid lobe, hyperlipidemia, Vit D def, Shingles x 2, Chronic joint pain, Health Maintenance: ? Colon Cologuard 12/2022, next due 01/04/2026 ? Mammo 31651 ? DEXA ? PAP ? 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 - Reports achievement of weight loss, sp ecifically losing 3 pounds. - Describes an improvement in mood with the current therapy. - Notes episodes of fatigue following pe riods of increased daily activities. - Discusses dietary changes aligned with 's health modification efforts. - Interested in increasing dose -Unfortunatley, several family members o n her Moms side have recently been dx with Cancer. She wonders about her risk: Family hx: Maternal First Cousin metastatic ovarian ca, age 30's, also has DM1; Maternal first cousin early 30's breast ca, aggressive Both are BRCA 1 + Maternal Aunt metastatic lung ca Also hx of maternal side with uterine cancer - Plans to pursue genetic testing for he reditary cancer risk. Review of Systems - General: Reports improved energy, but sometimes experiences subsequent fatigue. - Psychiatric: Reports improvement in mo od. Patient reports improved mood and increased assertiveness since starting bupropion - Gastrointestinal: Denies abdominal evens n and constipation. - Neurological: Denies tremors or anxiou sness. Physical Exam General: Well developed, well nourished, in no acute distress. Appears stated age. Head: Normocephalic, atraumatic. Psych: Mood and affect appropriate. No tremors or anxiousness noted. Discussion Notes During the consultation, I discussed the patient's current treatment with Bupropion, noting her positive response in terms of mood improvement and modest weight loss. I advised an increase in dosage to 300 mg daily to potentially enhance therapeutic effects with an understanding that harmful side effects were minimal. We reviewed a common side effect of increased anxiety with escalation and reassured that adjustments could be made if necessary. I talked to her about possible changes to the medication regimen or dosing if anxiety developed, highlighting solutions such as returning to a lower dosage or shifting to a twice-daily schedule. We also discussed the current trends in her family's medical history, recommending genetic testing to evaluate hereditary cancer risk. I detailed the [facility] testing process and ensured she felt comfortable with the specialist, Dr. Shahid, for genetic consultation. We outlined anticipatory guidance regarding continued cancer screenings and potential hereditary risk. She has completed her cologaurd in 2022; strongly recommend Colonoscopy for next screen due 2025. She is UTD on her mammo. Of note, she does have dense breasts. ? benefit of mri. will see what Dr Shahid has to recommend. Assessment and Plan 1. Mood and Wt Loss: - Increase Bupropion to 300 mg daily. - Monitor for anxiety and adjust dosage if needed. - Support dietary and lifestyle changes for weight management. 3. Family History of Hereditary Cancer - Recommend [facility] genetic testing. - Refer to Dr. Shahid for genetic cons ultation. - Continue regular cancer screenings. - Strongly recommend colonoscopy 2025 - Consider breast MRI Patient Instructions - Increase Bupropion to 300 mg daily. - Monitor how you feel with the new dose and report any side effects. - Continue healthy eating and lifestyle changes to maintain weight goals. - Schedule and complete recommended [facility] screenings. - Arrange an appointment for genetic cou nseling. Consent Patient was informed and verbally consented to the use of an ambient scribe for clinic note documentation during this visit. Total time spent caring for the patient today was 30 minutes. This includes time spent before the visit reviewing the chart, time spent during the visit, and time spent after the visit on documentation, reviewing laboratory results, diagnostic imaging, medications, performing a medically necessary evaluation, counseling on diagnoses, care coordination, ordering appropriate tests, ordering appropriate medications, review of tests performed by other providers, reporting test results with the patient, communication with other healthcare providers. [facility] Medical History (Updated 09/19/24 @ 17:47 by Marguerite Hayes, [facility]) Absent reflex of lower extremity Chronic leukopenia Greater trochanteric bursitis of both hips Hypothyroidism Osteoarthritis of knees, bilateral Pain in joint involving multiple sites Right upper quadrant abdominal pain of unknown etiology Swelling of right knee joint Family History Father Vascular disease Hypertension Thyroid disease Mother Thyroid disease Paternal Grandmother Heart disease Diabetes CVD (cardiovascular disease) Maternal Grandfather Osteoarthritis Maternal Aunt Lupus Social History Housing: House Unable to assess alcohol history related to: Unable to respond Alcohol intake: current Alcohol intake frequency: holidays/special occasions only Patient Tobacco Use Status: Never used Tobacco e-Cigarette/Vaping Use: Never Used Second Hand Smoke Exposure: No Current occupational status: employed Current occupation: [employer] [place] Cognitive needs: No Hearing needs: No Vision needs: Yes (wear glasses) Questionnaire PHQ-9 Over the last 2 weeks, how often have you been bothered by any of the following problems? 1. Little interest or pleasure in doing things: several days 2. Feeling down, depressed, or hopeless: several days 3. Trouble falling or staying asleep, or sleeping too much: not at all 4. Feeling tired or having little energy: several days 5. Poor appetite or overeating: not at all 6. Feeling bad about yourself - or that you are a failure or have let yourself or your family down: not at all 7. Trouble concentrating on things, such as reading the newspaper or watching television: not at all 8. Moving or speaking so slowly that other people could have noticed. Or the opposite - being so fidgety or restless that you have been moving around a lot more than usual: not at all 9. Thoughts that you would be better off or of hurting yourself in some way: not at all Total score: 3 Depression Screening Interpretation: Negative Depression Screening Done: Yes 30095 - PHQ-9 Billing: Yes Source: Developed by Drs. Gustavo Hawk, Evangelina Mclaughlin, David Jose and colleagues, with an educational иван from [facility]. Thrive Questionnaire Date Thrive assessed: 09/19/24 I am a: Patient What is your living situation today?: I have a steady place to live Within the past 12 months, did the food you bought not last and you didn't have the money to get more?: Sometimes True Within the past 12 months, did you worry whether your food would run out before you got money to buy more?: Sometimes True Do you have trouble paying for medicines?: No Do you have trouble getting transportation to medical appointments?: No Do you have trouble paying your heating and electricity bill?: No Do you have trouble taking care of your child, family member or friend?: No Do you have trouble with day-to-day activities such as bathing, preparing meals, shopping, managing finances, etc.?: No Are you currently unemployed and looking for a job?: No Are you interested in more education?: No Please select the resources that you would like help with: None Currently or been in a relationship where the following occur: No concerns reported THRIVE Score: 2 AUDIT C Alcohol Use Questionnaire (AUDIT-C) 1. How often do you have a drink containing alcohol?: Never 3. How often do you have six or more drinks on one occasion?: Never Total Score: 0 Score Reviewed/Action Taken: Yes DONNA-7 AMB Questionnaire DONNA-7 Date DONNA - 7 assessed: 09/19/24 Feeling nervous, anxious, or on edge: 1 = Several days Not being able to stop or control worryin = Several days Worrying too much about different things: 0 = Not at all Trouble relaxin = Not at all Being so restless that it is hard to sit still: 0 = Not at all Becoming easily annoyed or irritable: 0 = Not at all Feeling afraid as if something awful might happen: 1 = Several days Total DONNA-7 score (0-4 normal; 5-9 mild; 10-14 moderate; 15-21 severe): 3 Source: Developed by Drs. Gustavo Hawk, Evangelina Mclaughlin, David Jose and colleagues, with an educational иван from [facility]. DONNA-7 Assessment Billing DONNA-7 Assessment Tool: DONNA-7 Assessment 46938 Physical exam (Primary Care) Vital Signs: Last Vital Signs Temp 97.6 F 09/19/24 13:24 Pulse 95 09/19/24 13:24 Resp 12 09/19/24 13:24 BP 124/70 09/19/24 13:24 Pulse Ox 96 09/19/24 13:24 Oxygen Delivery Method Room Air 09/19/24 13:24 BMI result Body Mass Index 34.2 BMI Assessment/Plan discussion: High BMI High, discussed plan: lifestyle and weight reduction Tobacco/Smoking Status: Tobacco use Status Tobacco use date assessed 09/19/24 09/19/24 13:25 Patient Tobacco Use Status Never used Tobacco 09/19/24 13:18 e-Cigarette/Vaping Use Never Used 09/19/24 13:25 PHQ-9: PHQ-9 Score PHQ-9: Total score 3 09/19/24 13:40 Depression Screening Interpretation: Negative Thrive Assessment: Date of Thrive Assessment Date Thrive assessed 09/19/24 09/19/24 13:18 Currently or been in a relationship where the following occur: No concerns reported Coding Level of Care Code Est Pt Level 4 (96163) Complex EM visit Add On G2211 Diagnoses Family history of breast cancer Z80.3 Family history of ovarian cancer Z80.41 Family history of lung cancer Z80.1 Family history of uterine cancer Z80.49 Obesity (BMI 30-39.9) E66.9 Mixed anxiety and depressive disorder F41.8 Additional Codes DONNA-7 Assessment Billing - DONNA-7 Assessment Tool: DONNA-7 Assessment 34034 ([id number]) PHQ-9 - 33905 - PHQ-9 Billing: Yes ([id number]) Assessment & Plan Assessment & Plan (1) Family history of breast cancer: Comment: MATERNAL COUSIN AGE 30'S Code(s): Z80.3 - Family history of malignant neoplasm of breast Category: Medical (2) Family history of ovarian cancer: Comment: MATERNAL COUSIN, AGE 30'S Code(s): Z80.41 - Family history of malignant neoplasm of ovary Category: Medical (3) Family history of lung cancer: Comment: MATERNAL AUNT, NONSMOKER Code(s): Z80.1 - Family history of malignant neoplasm of trachea, bronchus and lung Category: Medical (4) Family history of uterine cancer: Comment: MATERNAL SIDE Code(s): Z80.49 - Family history of malignant neoplasm of other genital organs Category: Medical (5) Obesity (BMI 30-39.9): Code(s): E66.9 - Obesity, unspecified Category: Medical (6) Mixed anxiety and depressive disorder: Code(s): F41.8 - Other specified anxiety disorders Category: Medical Plan . Orders: Referrals General Surgery Referral Z80.1 - Family history of malignant neoplasm of trachea, bronchus and lung, Z80.3 - Family history of malignant neoplasm of rach st, Z80.41 - Family history of malignant neoplasm of ovary, Z80.49 - Family history of malignant neoplasm of other genital organs Medications: New bupropion HCl XL 300 mg PO QAM 90 tabs 0RF Discontinued bupropion HCl XL (Wellbutrin XL) Discontinued Reason: Doctor's Order 150 mg PO QAM 90 tabs 1RF
[2024-09-19 13:24] VITALS: BP 124/70; PULSE 95; RESP 12; TEMP 36.4; O2SAT 96; BMI 34.2
== END 2024-09-19 14:39 | disposition home or self-care (01) ==
LOC: HO.HMCFM 13:04
PROVIDERS: PCP Nurse Practitioner Family; Visit Provider Nurse Practitioner Family
DX: F41.8 Other specified anxiety disorders (principal); E66.9 Obesity, unspecified; Z68.34 Body mass index [BMI] 34.0-34.9, adult; Z80.3 Family history of malignant neoplasm of breast; Z80.41 Family history of malignant neoplasm of ovary; Z80.1 Family history of malignant neoplasm of trachea, bronchus and lung; Z80.49 Family history of malignant neoplasm of other genital organs

== ENCOUNTER → 2024-09-19 13:04 | Outpatient (BNVA) | payer OTHER, SELFPAY | PROVIDERS: PCP Nurse Practitioner Family; Visit Provider Nurse Practitioner Family | DX: E04.1 Nontoxic single thyroid nodule (principal); E03.9 Hypothyroidism, unspecified; D72.819 Decreased white blood cell count, unspecified; E78.5 Hyperlipidemia, unspecified; E55.9 Vitamin D deficiency, unspecified; M25.50 Pain in unspecified joint; G89.29 Other chronic pain; E66.9 Obesity, unspecified; F41.8 Other specified anxiety disorders; Z80.3 Family history of malignant neoplasm of breast; Z80.41 Family history of malignant neoplasm of ovary; Z80.1 Family history of malignant neoplasm of trachea, bronchus and lung; Z80.49 Family history of malignant neoplasm of other genital organs; Z68.34 Body mass index [BMI] 34.0-34.9, adult | CPT/HCPCS: 96127 ==

== ENCOUNTER 2024-11-11 08:13 | Outpatient (REF) | payer OTHER, SELFPAY | END 2024-11-11 08:14 | disposition home or self-care (01) | LOC: HO.MAMMO 08:13 | PROVIDERS: Visit Provider Nurse Practitioner Family | DX: Z12.31 Encounter for screening mammogram for malignant neoplasm of breast (principal) | CPT/HCPCS: 77063; 77067 ==

== ENCOUNTER → 2024-11-11 08:30 | Outpatient (BNV) | payer OTHER, SELFPAY | PROVIDERS: Visit Provider Internal Medicine | DX: Z12.31 Encounter for screening mammogram for malignant neoplasm of breast (principal) | CPT/HCPCS: 77063; 77067 ==

== ENCOUNTER 2025-01-28 15:37 | Outpatient (AMB) | payer OTHER, SELFPAY ==
--- NOTE | 2025-01-28 15:39 | A.OFFVIS_ITS ---
Vital Signs 01/28/25 15:54 Height 5 ft 6 in Weight 212 lb BMI 34.2 BP 173/82 H Blood Pressure Location Lt brachial Position Sitting Pulse 83 Intake Visit Reasons: s/p mammo november Intake Note: Patient is seen in office for evaluation of high risk breast cancer. 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 Cryptologic Support Specialist: Cryptologic Support Specialist Present Accompanied by: Self / Same As Patient Allergies Sulfa (Sulfonamide Antibiotics) (SULFA (SULFONAMIDE ANTIBIOTICS)) Allergy (Unknown, Verified 01/28/25 15:54) HIVES Medication List - Last Reconciled 01/28/25 by Kory Shahid MD acetaminophen (Tylenol) 325 mg PO QID PRN bupropion HCl XL 300 mg PO QAM cetirizine (Zyrtec) 10 mg PO DAILY PRN cholecalciferol (vitamin D3) 100 mcg PO DAILY ibuprofen 400 mg PO BID PRN levothyroxine 25 mcg PO DAILY multivitamin 1 tab PO DAILY HPI Comments Details: 49-year-old female patient presenting with a strong family history of breast cancer and BRCA1 gene mutation presenting today for discussion regarding genetic testing. She denies any breast pain, skin changes, nipple discharge, nipple retraction, or palpable masses. She denies a previous history of breast surgery or breast cancer. Her menarche was at 13, she is and was 26 when her 1st child was born. She is postmenopausal and her last period was 2-3 years ago. She denied the use of hormone replacement therapy. She has never undergone genetic testing. Her family heritage is negative for Ashkenazi Muslim heritage. Her most recent mammogram of 11/11/2024 revealed no mammographic evidence of malignancy (BI-RADS 1). Family history is significant for a maternal 1st cousin diagnosed with metastatic ovarian cancer in her 30s determined to be BRCA 1 positive; maternal 1st cousin in her early 30s diagnosed with an aggressive breast cancer, recently completed her chemotherapy also found to be BRCA positive, another 1st cousin determined to be BRCA positive and currently on a high risk protocol. Her mother is alive and well with no history of cancer. Her sister was diagnosed with melanoma. The mother of her 1st cousins unfortunately in a car accident at the age of 51. [facility] Medical History Absent reflex of lower extremity Osteoarthritis of knees, bilateral Greater trochanteric bursitis of both hips Swelling of right knee joint Pain in joint involving multiple sites Hypothyroidism Right upper quadrant abdominal pain of unknown etiology Chronic leukopenia Family History Father Vascular disease Hypertension Thyroid disease Mother Thyroid disease Paternal Grandmother Heart disease Diabetes CVD (cardiovascular disease) Maternal Grandfather Osteoarthritis Maternal Aunt Lupus Family/Other Breast cancer, Onset Age: 37 Family/Other Ovarian cancer, Onset Age: 35 Maternal Grandmother Uterine cancer Maternal Aunt Lung cancer, Onset Age: 59 Social History Housing: House Unable to assess alcohol history related to: Unable to respond Alcohol intake: current Alcohol intake frequency: holidays/special occasions only Patient Tobacco Use Status: Never used Tobacco e-Cigarette/Vaping Use: Never Used Second Hand Smoke Exposure: No Current occupational status: employed Current occupation: [employer] [place] Cognitive needs: No Hearing needs: No Vision needs: Yes (wear glasses) Female Reproductive History Menstrual Age of Menarche: 13 Total pregnancies: 2 Number of Living Children: 2 Review of Systems Const All systems reviewed & are unremarkable except as noted in HPI and below Physical Exam Const General: cooperative and no acute distress Nutritional Appearance: well nourished Orientation/consciousness: patient oriented x3 Limitations: no limitations HEENT Head: Yes normocephalic and Yes atraumatic Ears: hearing grossly normal bilaterally Chest Other: Left breast: No skin change, no nipple retraction, no nipple discharge, no palpable mass, no enlarged lymph nodes. Right breast: No skin change, no nipple retraction, no nipple discharge, no palpable mass, no enlarged lymph nodes Resp Effort & Inspection: normal respiratory effort, no audible wheezes, no cough and no respiratory distress Cardio Jugular venous distension: no JVD GI Inspection: Yes normal to inspection Skin Other: Warm, dry, no rash Neuro General: patient oriented x3 Extrem General: Yes no clubbing, cyanosis or edema Assessment & Plan Assessment & Plan (1) Family history of breast cancer: Comment: MATERNAL COUSIN AGE 30'S Code(s): Z80.3 - Family history of malignant neoplasm of breast Category: Medical (2) Family history of uterine cancer: Comment: MATERNAL SIDE Code(s): Z80.49 - Family history of malignant neoplasm of other genital organs Category: Medical (3) Family history of ovarian cancer: Comment: MATERNAL COUSIN, AGE 30'S Code(s): Z80.41 - Family history of malignant neoplasm of ovary Category: Medical (4) Family history of lung cancer: Comment: MATERNAL AUNT, NONSMOKER Code(s): Z80.1 - Family history of malignant neoplasm of trachea, bronchus and lung Category: Medical Plan 49-year-old female patient with a strong family history of breast cancer and ovarian cancer as well as BRCA 1 gene positive mutations. Her past history is negative for breast problems or breast surgery. Examination today revealed no suspicious findings in either breast. Her most recent mammogram revealed scattered areas of fibroglandular density (B) but no mammographic evidence of malignancy. We discussed the process for genetic testing including the risks and benefits. I also reviewed the genetic testing report and potential findings. She wishes to proceed with the genetic testing and will be scheduled at her earliest convenience. She will return approximately 6 weeks following this to review the results and discuss her treatment options. She expressed understanding and agrees with the plan. Coding Level of Care Code New Pt Level 4 (36624) Diagnoses Family history of breast cancer Z80.3 Family history of uterine cancer Z80.49 Family history of ovarian cancer Z80.41 Family history of lung cancer Z80.1
[2025-01-28 15:54] VITALS: BP 173/82; PULSE 83; BMI 34.2
== END 2025-01-28 16:30 | disposition home or self-care (01) ==
PROVIDERS: PCP Nurse Practitioner Family; Visit Provider Surgery
DX: Z80.3 Family history of malignant neoplasm of breast (principal); Z80.49 Family history of malignant neoplasm of other genital organs; Z80.41 Family history of malignant neoplasm of ovary; Z80.1 Family history of malignant neoplasm of trachea, bronchus and lung
CPT/HCPCS: 99204

== ENCOUNTER 2025-03-25 08:57 | Outpatient (AMB) | payer OTHER, SELFPAY ==
--- NOTE | 2025-03-25 09:05 | A.OFFVIS_ITS ---
Intake Visit Reasons: genetic testing results Intake Note: Patient is seen in office for genetic testing results. Pt c/o: denies any changes, here for results. 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 A copy of the report was provided to the patient. Genetic testing revealed no clinically significant genetic mutations and no variance of unknown significance. Her breast cancer risk score was 16% and Tyrer-Cuzick score of 10% both below the 20% threshold of high risk. Of note she was noted to have an elevated risk of melanoma and routine skin screening was recommended. Patient reports that she is currently doing this due to her sisters melanoma. [facility] Medical History Absent reflex of lower extremity Osteoarthritis of knees, bilateral Greater trochanteric bursitis of both hips Swelling of right knee joint Pain in joint involving multiple sites Hypothyroidism Right upper quadrant abdominal pain of unknown etiology Chronic leukopenia Family History Father Vascular disease Hypertension Thyroid disease Mother Thyroid disease Paternal Grandmother Heart disease Diabetes CVD (cardiovascular disease) Maternal Grandfather Osteoarthritis Maternal Aunt Lupus Family/Other Breast cancer, Onset Age: 37 Family/Other Ovarian cancer, Onset Age: 35 Maternal Grandmother Uterine cancer Maternal Aunt Lung cancer, Onset Age: 59 Sister Melanoma, Onset Age: 43 Unknown FH: BRCA1 gene positive Social History Housing: House Alcohol intake: current Alcohol intake frequency: holidays/special occasions only Patient Tobacco Use Status: Never used Tobacco e-Cigarette/Vaping Use: Never Used Second Hand Smoke Exposure: No Current occupational status: employed Current occupation: [employer] Cognitive needs: No Hearing needs: No Vision needs: Yes (wear glasses) Female Reproductive History Menstrual Age of Menarche: 13 Review of Systems Const All systems reviewed & are unremarkable except as noted in HPI and below Physical Exam Exam Exam: Exam deferred Assessment & Plan Assessment & Plan (1) Family history of breast cancer: Comment: MATERNAL COUSIN AGE 30'S Code(s): Z80.3 - Family history of malignant neoplasm of breast Category: Medical Plan 49-year-old female patient with a strong family history of breast cancer returning to review genetic testing results. Genetic testing revealed no clinically significant mutations and no variance of unknown significance. Her breast cancer risk score and Tyrer-Cuzick score were below the 20% threshold of high risk. Routine screening for breast cancer is recommended including monthly self-examinations, yearly mammograms and clinical examinations. She is welcome to return for any new concerns. Coding Level of Care Code Est Pt Level 3 (67295) Diagnoses Family history of breast cancer Z80.3
== END 2025-03-25 09:13 | disposition home or self-care (01) ==
LOC: HO.HGS 08:57
PROVIDERS: PCP Nurse Practitioner Family; Visit Provider Surgery
DX: Z80.3 Family history of malignant neoplasm of breast (principal)
CPT/HCPCS: 99213